=== PATIENT | male | born 1950 | race Caucasian/White ===

== ENCOUNTER 2020-05-18 16:32 | Emergency (ER) | payer MEDICARE, BC ==
[~2020-05-18] VITALS: Ht 193 cm; Wt 102.5 kg
[2020-05-18] MEDS ORDERED: ATORVASTATIN CA20 MG PO (16:43)
[2020-05-18] MEDS ORDERED: METOPROLOL SUCC50 MG PO (16:43)
--- NOTE | 2020-05-18 16:54 | Emergency Department Note ---
History of Present Illnes History of Present Illness Chief Complaint: Laceration History of Present Illness This is a 69 year old male cc laceration left thumb Onset (how long ago): day(s) (1) Location: left thumb Quality: laceration Radiation: Denies non-radiation, Denies back, Denies neck, Denies extremity, Denies abdomen, Denies periumbilical, Denies flank, Denies proximal, Denies distal, Denies other Severity: mild Onset quality: sudden Duration (how long): hour(s) (1) Timing of current episode: constant Progression: unchanged Context: Denies recent illness, Denies recent surgery, Denies recent immobilization, Denies recent travel, Denies trauma/injury, Denies new medications, Denies hx of DVT/PE, Denies non-compliance w/ medications, Denies other Relieving factors: none Associated symptoms: Denies denies other symptoms, Denies confusion, Denies chest pain, Denies cough, Denies diaphoresis, Denies fever/chills, Denies headaches, Denies loss of appetite, Denies malaise, Denies nausea/vomiting, Denies rash, Denies seizure, Denies shortness of breath, Denies syncope, Denies weakness, Denies other Past Medical/Family History Physician Review I have reviewed the patient's past medical and family history. Any updates have been documented here. Past Medical History Past Medical History: Hypertension, Hyperlipedemia Past Surgical History: None Social History Smoking Cessation: Never Smoker Counseling Performed: No Alcohol Use: None Any Illegal Drug Use: No Physically hurt or threatened: No Other Any Pre-Existing Lines (PICC,: No Review of Systems Review of Systems Constitutional: Reports no symptoms EENTM: Reports no symptoms Cardiovascular: Reports no symptoms Respiratory: Reports no symptoms Gastrointestinal: Reports no symptoms Genitourinary: Reports no symptoms Musculoskeletal: Reports as per HPI Integumentary: Reports no symptoms Neurological: Reports no symptoms Psychological: Reports no symptoms Endocrine: Reports no symptoms Hematological/Lymphatic: Reports no symptoms Physical Exam Related Data Allergies: Coded Allergies: No Known Allergies (Unverified , 05/18/20) Vital signs reviewed: Yes Physical Exam CONSTITUTIONAL Constitutional: Present well-developed, Present well-nourished HENT HENT: Present normocephalic, Present atraumatic, Present oropharynx clear/moist, Present nose normal HENT L/R: Present left ext ear normal, Present right ext ear normal EYES Eyes: Reports PERRL, Reports conjunctivae normal NECK Neck: Present ROM normal PULMONARY Pulmonary: Present effort normal, Present breath sounds normal CARDIOVASCULAR Cardiovascular: Present regular rhythm, Present heart sounds normal, Present capillary refill normal, Present normal rate GASTROINTESTINAL Abdominal: Present soft, Present nontender, Present bowel sounds normal GENITOURINARY Genitourinary: Present exam deferred SKIN Skin: Present warm, Present dry MUSCULOSKELETAL Musculoskeletal: Present ROM normal, Present other (laceraton left thumb) NEUROLOGICAL Neurological: Present alert, Present oriented x 3, Present no gross motor or sensory deficits PSYCHOLOGICAL Psychological: Present mood/affect normal, Present judgement normal Assessment & Plan Medical Decision Making MDM LACERATION ABRASION Reassessment Reassessment BETTER Assessment & Plan Final Impression: (1) Laceration of left thumb (2) Acute pain due to trauma Home Meds Reported Medications Atorvastatin Calcium (ATORVASTATIN CALCIUM) 20 Mg Tablet, 40 MG PO HS, #30 TAB 05/18/20 Metoprolol Succinate (METOPROLOL SUCCINATE) 50 Mg Tab.er.24h, 50 MG PO BID, MG 05/18/20 NADINE SARAVIA MD May 18, 2020 16:54
--- OUTSIDE RECORDS SUMMARY | 2020-05-18 17:29 | XMS REPORT | Continuity of Care Document ---
Author Author [facility] t Organization [facility] Address [address] [place] [address] Phone Unavailable Care Team Providers Care Truck Driver Name Role Phone Idalmis Yung Attphys [id number], PROVIDERBAYSHORENORMA Attphys Unavailable RINA CALVO APRN Attphys Unavailable Rhea Zelaya Attphys Megan Vasques Attphys Jossie Diaz Attphys Candace Wilson Attphys Paresh Still Attphys Valdo Pacheco Attphys Rhea Zelaya Admphys Valdo Pacheco Admphys Idalmis Yung Admphys Payers Payer Name Policy Type Policy Number Effective Date Expiration Date S ource Problems Condition Name Condition Details Condition Category Status Onset Date Resolution Date Last Treatment Date Treating Clinician Comments Source N20.0 . N28.89 N20. 0 . N28.89 Active 03/05/2020 [facility] Active 2020-03-05 00:00:00 2020-03-18 13:26:00 [facility] DX: N13.30=UNSPECIFIED HYDRONEPHROSIS, N DX: N13.30=UNSPECIFIED HYDRONEPHROSIS, N Active 02/20/2020 [facility] Active 2020-02-20 00:00:00 2020-02-28 10:55:00 [facility] ACUTE RENAL INSUFFICIENCY ACUT E RENAL INSUFFICIENCY Active 01/23/2020 [facility] Active 2020-01-23 00:00:00 2020-01-24 11:08:00 [facility] CONSTIPATION CONS TIPATION Active 01/23/2020 [facility] Active 2020-01-23 00:00:00 2020-01-23 15:31:00 [facility] DX: M54.16=RADICULOPATHY, LUMBAR REGION, DX: M54.16=RADICULOPATHY, LUMBAR REGION, Active 01/05/2018 [facility] Active 2018-01-05 00:00:00 2018-01-10 19:36:00 [facility] R10.9 CT ABD/PEL WO RENAL STONE PROTOCO R10.9 CT ABD/PEL WO RENAL STONE PROTOCO Active 08/31/2017 [facility] Active 2017-08-31 00:00:00 2017-09-27 08:45:00 M mell Thao FIRST NIGHT 62686 FIRS T NIGHT 42214 Active 09/05/2015 [facility] Active 2015-09-05 00:00:00 2015-09-23 19:55:00 [facility] ACUTE AFIB WITH RVR NEW ONSET ACUTE AFIB WITH RVR NEW ONSET Active 08/15/2015 [facility] Active 2015-08-15 00:00:0 0 2015-08-19 10:26:00 [facility] LIGHT HEADEDNESS LIGH T HEADEDNESS Active 08/15/2015 [facility] Active 2015-08-15 00:00:00 2015-08-15 14:53:00 [facility] PROSTATE CA...PT ALREADY HAS CATH DO NOT PROSTATE CA...PT ALREADY HAS CATH DO NOT Active 07/23/2014 [facility] Active 2014-07-23 00:00:00 2014-07-30 09:58:00 M mell Master UNK UNK Active 05/29/2014 [facility] Active 2014-05-29 00:00:00 2014-07-26 10:08:00 Sharon emodemar Thao History of malignant neoplasm of prostate History of m alignant neoplasm of prostate Problem Resolved [facility] History of backache History of backache Problem Resolved [facility] History of Degenerative disorder History of Degenerative disorde r Problem Resolved [facility] History of high cholesterol History of high cholesterol Problem Resolved [facility] History of hypertension History of hypertension Problem Resolved [facility] Testicular hypofunction Testicular hypofunction Problem Active [facility] Acute bronchitis Acute bronchitis Problem Active [facility] Need for DTP vaccine Need for DTP vaccine Problem Active [facility] URI (upper respiratory infection) URI (upper respiratory infecti on) Problem Active [facility] Benign prostatic hypertrophy Benign prostatic hypertrophy Problem Active [facility] Suspected 2019 novel coronavirus infection Suspected 2 019 novel coronavirus infection Problem Active [facility] Essential (primary) hypertension Essential (primary) hypertensio n Problem Active [facility] Establishing care with new doctor, encounter for Estab lishing care with new doctor, encounter for Problem Active [facility] Hyperlipidemia Hyperlipidemia Problem Active [facility] BMI 28.0-28.9,adult BMI 28.0-28.9,adult Problem Active [facility] Calculus of kidney Calc ulus of kidney 01/03/2018 [facility] 2018-01-03 12:01:45 Me shemar Thao Cyst of kidney, acquired Cyst of kidney, acquired 01/03/2018 [facility] 2018-01-03 12:01:45 Gómez Thao Low back pain Low back pain 07/30/2018 [facility] Problem 2018-07-30 13:58:50 Gómez Thao Spondylosis without myelopathy or radiculopathy, 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, lumbosacral region 07/30/2018 [facility] 2018-07-30 13:58:5 0 Gómez Thao Final: Obstructive sleep apnea (adult) (pediatric) Final: Obstructive sleep apnea (adult) (pediatric) 09/26/2015 [facility] Problem 2015-09-26 00:37:26 Gómez Thao Arthropathy (disorder) Arth ropathy (disorder) Resolved Problem 03/28/2020 [facility] Problem Res olved 2020-03-28 01:11:55 Gómez navas Backache (finding) Back ache (finding) Resolved Problem 03/28/2020 [facility]olved 2020-03-28 01:11:55 Gómez Thao Erectile dysfunction following radical prostatectomy Erectile dysfunction following radical prostatectomy Resolved Problem 03/28/2020 [facility] Heriberto Stephen Problem Resolved 2020-03-28 01:11:55 [facility] External hemorrhoids (disorder) External hemorrhoids (disorder) Resolved Problem 03/28/2020 [facility] 2020-03-28 01:11:55 [facility] andressa Thao Gastroesophageal reflux disease (disorder) Gastroesophageal reflux disease (disorder) Resolved Problem 03/28/2020 [facility] Resolved 2020-03-28 01:11:55 [facility] Atrial fibrillation (disorder) Atrial fibrillation (disorder) Active Problem 03/28/2020 [facility] Active 2020-03-28 01:11:55 [facility] Malignant tumor of prostate (disorder) Malignant tumor of prostate (disorder) Active Problem 01/05/2019 [facility] Active 2019-01-05 01:28:26 Nm shemar Thao Hypertensive disorder, systemic arterial (disorder) Hypertensive disorder, systemic arterial (disorder) Active Problem 03/28/2020 [facility] Active 2020-03-28 01:11:55 [facility] Master Chronic kidney disease stage 2 (disorder) Chronic kidney disease stage 2 (disorder) Active Problem 03/28/2020 Medical [facility] Problem Active 2020-03-28 01:11:55 Kike Thao History of radical prostatectomy (situation) History of radical prostatectomy (situation) Active Problem 03/28/2020 [facility] Problem Active 2020-03-28 01:11:55 Kike Thao Sleep apnea (finding) Slee p apnea (finding) Active Problem 03/28/2020 [facility] Problem Active 2020-03-28 01:11:55 Gómez Thao Hyperlipidemia Hype rlipidemia Active 08/08/2013 [facility] Problem Active 2013-08-08 15:18:47 mell Thao Hypertension Hype rtension Active 08/08/2013 [facility] Problem Active 2013-08-08 15:18:47 Kike demar Master MALIGN NEOPL PROSTATE CASSIDY GN NEOPL PROSTATE Active [facility] Diagnosis Active 2014-07-30 09:58:00 Me shemar Master UNSPECIFIED ATRIAL FIBRILLATION UNSPECIFIED ATRIAL FIBRILLATION Active [facility] Diagnosis Active 2015-08-19 10 :26:00 Gómez Thao OBSTRUCTIVE SLEEP APNEA (ADULT) (PEDIATR OBSTRUCTIVE SLEEP APNEA (ADULT) (PEDIATR Active [facility] Diagnosis Active 2015-09-23 19:55:00 [facility] Master UNSPECIFIED ABDOMINAL PAIN UNS PECIFIED ABDOMINAL PAIN Active [facility] Diagnosis Active 2017-09-27 08:45:00 Gómez Thao RADICULOPATHY, LUMBAR REGION R ADICULOPATHY, LUMBAR REGION Active [facility] Diagnosis Active 2018-01-10 19:36 :00 Góemz Thao DISORDER OF KIDNEY AND URETER, UNSPECIFI DISORDER OF KIDNEY AND URETER, UNSPECIFI Active [facility] Diagnosis Active 2020-01-24 11:08:00 Gómez Thao UNSPECIFIED HYDRONEPHROSIS UNS PECIFIED HYDRONEPHROSIS Active [facility] Diagnosis Active 2020-02-28 10:55:00 [facility] Master CALCULUS OF KIDNEY CALC ULUS OF KIDNEY Active [facility] Diagnosis Active 2020-03-18 13:26:00 Nm shemar Thao OTHER SPECIFIED DISORDERS OF KIDNEY AND OTHER SPECIFIED DISORDERS OF KIDNEY AND Active [facility] Diagnosis Active 2020-03-18 13:26:00 [facility] Master Disorder of kidney and ureter, unspecified Disorder of kidney and ureter, unspecified 01/23/2020 01/26/2020 [facility] 2020-01-23 17:00:00 2020-01-26 22:17:50 2020-01-26 22:17:50 [facility] Master Constipation, unspecified Cons tipation, unspecified 01/23/2020 01/26/2020 [facility] 2020-01-23 17:00:00 2019 22:17:50 2020-01-26 22:17:50 Gómez Thao Other spondylosis with radiculopathy, lumbar region Other spondylosis with radiculopathy, lumbar region 01/14/2018 07/30/2018 [facility] 2018-01-14 03:36:52 2018-07-30 13:58:50 2018-07 13:58:50 [facility] Master Unspecified abdominal pain Uns pecified abdominal pain 10/05/2017 01/03/2018 [facility] Problem 2017-10-05 03:2 1:10 2018-01-03 12:01:45 2018-01-03 12:01:45 Gómez navas Allergies, Adverse Reactions, Alerts Allergy Name Allergy Type Status Severity Reaction(s) Onset Date Inacti ve Date Treating Clinician Comments Source amoxicillin DA Active [place] 2020-05-07 00:00:00 [facility] amoxicillin DA Active [place] 2019-02-10 00:00:00 [facility] amoxicillin DA Active [place] 2019-02-02 00:00:00 [facility] amoxicillin DA Active U 2017-10-05 00:00:00 [facility] amoxicillin DA Active U 2010-12-23 00:00:00 [facility] Amoxicillin TABS Allergy to drug (finding) Active [facility] amoxicillin amoxicillin Active [facility] Master No Known Drug Allergies No Known Drug Allergies Active [facility] Master Family History Family Member Diagnosis Comments Start Date Stop Date Source Mother Family history of Hypertension [facility] Mother Family history of Ovarian Cancer [facility] Mother Family history of Stroke Syndrome [facility] Father Family history of Hypertension [facility] Father Family history of Aortic Aneurysm [facility] Father Family history of Stroke Syndrome [facility] Sister Family history of pancreatic cancer [facility] Unknown Family Member Family History 2013-08-08 15:18:47 2 15:18:47 Gómez Master Social History Social Habit Start Date Stop Date Quantity Comments Source Social History 2013-08-08 15:18:47 2013-08-08 15:18:47 [facility] Smoking Status Start Date Stop Date Source Ex-smoker (finding) [place] [facility] Medications Ordered Medication Name Filled Medication Name Start Date Stop Da te Current Medication? Ordering Clinician Indication Dosage Frequency Signature (SIG) Comments Components Source Azithromycin 250 MG Oral Tablet Azithromycin 250 MG Oral Tab let 2020-02-28 00:00:00 Yes RINA CALVO APRN TAKE 2 TABLETS ON DAY 1 THEN TAKE 1 TABLET A DAY FOR 4 DAYS. [facility] amLODIPine Besylate 5 MG Oral Tablet amLODIPine Besylate 5 M G Oral Tablet 2020-02-27 00:00:00 Yes ALVINO Durán [facility] Atorvastatin Calcium 40 MG Oral Tablet Atorvastatin Calcium 40 MG Oral Tablet 2020-02-27 00:00:00 Yes ALVINO Durán [facility] Metoprolol Tartrate 50 MG Oral Tablet Metoprolol Tartrate 50 MG Oral Tablet 2020-02-27 00:00:00 Yes ALVINO Durán Q0.5D TAKE 1 TABLET TWICE DAILY. [facility] CeleBREX 200 MG Oral Capsule CeleBREX 200 MG Oral Capsule 9 00:00:00 Yes ALVINO Durán [facility] Amitriptyline HCl - 75 MG Oral Tablet Amitriptyline HCl - 75 MG Oral Tablet 2020-02-27 00:00:00 Yes ALVINO Durán [facility] Warfarin Sodium 3 MG Oral Tablet Warfarin Sodium 3 MG Oral T ablet 2020-02-27 00:00:00 Yes ALVINO Durán [facility] Gabapentin 600 MG Oral Tablet Gabapentin 600 MG Oral Tablet 2019 00:00:00 Yes ALVINO Durán [facility] Nitrofurantoin Macrocrystal 100 MG Oral Capsule Nitrof urantoin Macrocrystal 100 MG Oral Capsule 2020-02-27 00:00:00 Yes ALVINO Durán [facility] Flomax 0.4 MG Oral Capsule Flomax 0.4 MG Oral Capsule 2020-02-27 00:0 0:00 Yes ALVINO Durán [facility] Tamsulosin hydrochloride 0.4 MG Oral Capsule [Flomax] 2020-02-20 15:51:00 Yes 0.4 mg = 1 cap, PO, Daily, # 30 cap, 11 Refill(s), Pharmacy: [id number], 190.5, cm, 02/20/20 10:43:00 CDT, Height, 105.909, kg, 02/20/20 10:43:00 CDT, Weight [facility] Oleg woody, RETIREMENT 2020-01-25 02:00:00 No Notes: (Same as: Venturaot) [facility] Master Amitriptyline 2020-01-25 02:00:00 No Notes: (Same as: Elavil) [facility] tamsulosin 0.4 mg oral capsule 2020-01-24 21:26:00 Yes 0.4 mg = 1 cap, PO, After Breakfast, # 30 cap, 0 Refill(s), Pharmacy: [facility] [id number], 190.5, cm, 01/23/20 23:38:00 CDT, Height, 102.727, kg, 01/23/20 23:38:00 CDT, Weight Gómez Crawford Enema 2020-01-24 17:33:00 No 133 mL, Route: VT, Drug Form: ISH, Dosing Weight 102.727, kg, ONCE, Start date: 01/24/20 12:33:00 CDT, Stop date: 01/24/20 12:33:00 CDT, 0 [facility] sennosides, RETIREMENT 8.6 MG Oral Tablet 2020-01-24 17:32:00 No Notes: (Same as: Senokot) Gómez Tripoli Flomax 2020-01-24 15:32:00 No Notes: (Same As: Flomax) "Do Not Crush" [facility] Docusate 2020-01-24 14:00:00 No Notes: (Same as: Colace) (Do Not Crush) [facility] POLYETHYLENE GLYCOL 3350 2020-01-24 14:00:00 No Notes: Dissolve in 8 oz of water or juice. (Same as: Miralax) [facility] atorvastatin 2020-01-24 14:00:00 No Notes: (Same as: Lipitor) [facility] gabapentin 300 MG Oral Capsule 2020-01-24 14:00:00 No Notes: (Same as: Neurontin) [facility] 24 HR Metoprolol Tartrate 50 MG Extended Release Tablet [Top rol] 2020-01-24 14:00:00 No Notes: (Sa me as: Toprol XL) May split tab, but do not crush. [facility] Ceftriaxone 2020-01-24 06:00:00 No Notes: (Same As: Rocephin). Use with 100 mL NS and infuse over 30 min MEDICATION WASTE Product Size: 1000 mg Product Wasted: ___ mg Gómez Thao Ondansetron 2020-01-24 05:31:00 No Notes: (Same as: Zofran) MEDICATION WASTE Product Size: 4 mg Product Wasted: ___ mg [facility] Dextrose 50% Syringe (D50W) 2020-01-24 05:31:00 No 12.5 gm, 25 mL, Route: IVP, Drug Form: INJ, Dosing Weight 102.727, kg, PRN, PRN Blood Glucose Results, Start date: 01/24/20 0:31:00 CDT, Duration: 30 day, Stop date: 02/23/20 0:30:00 CDT, 0 [facility] [place] Glucagon 2020-01-24 05:31:00 No 1 mg, Route: IM, Drug form: PDR/INJ, PRN, Dosing Weight 102.727, kg, PRN Blood Glucose Results, Start date: 01/24/20 0:31:00 CDT, Duration: 30 day, Stop date: 02/23/20 0:30:00 CDT, 0 [facility] Master Melatonin 2020-01-24 05:31:00 No Notes: (Sa me as: Melatonin) [facility] Acetaminophen 2020-01-24 05:31:00 No Notes: Do not exceed 4 gm/day. (Same as: Tylenol) [facility] Lactated Ringers IV 1,000 mL 2020-01-24 05:31:00 No 1,000 mL, Rate: 125 ml/hr, Infuse over: 8 hr, Route: IV, Dosing Weight 102.727 kg, Total Volume: 1,000, Start date: 01/24/20 0:31:00 CDT, Duration: 30 day, Stop date: 02/23/20 0:30:00 CDT, 2.34, m2, 0 [facility] n Saline Flush 0.9% 2020-01-24 05:31:00 No Notes: (Same as: BD Posiflush) [facility] Hydromorphone 2020-01-24 05:31:00 No Notes: Same as: Dilaudid [facility] amitriptyline 75 mg oral tablet 2020-01-24 04:32:00 Yes 75 mg = 1 tab, PO, Bedtime, # 30 tab, 0 Refill(s) [facility] Centrum Silver Men's 2020-01-24 04:32:00 Yes PO, Daily, 0 Refill(s) [facility] GoLYTELY oral powder for reconstitution 2020-01-24 02:05:00 No 240 mL, PO, Q10Min, X 1 day, # 1 ea, 0 Refill(s), Pharmacy: [facility] 82, 190.5, cm, 01/23/20 14:14:00 CDT, Height, 102.727, kg, 01/23/20 14:14:00 CDT, Weight Gómez Thao NS (Bolus) IV 2020-01-23 23:26:00 No 1,000 mL, 1,000 ml/hr, Infuse Over: 1 hr, Route: IV, 1,000, Drug form: INJ, ONCE, Priority: STAT, Dosing Weight 102.727 kg, Start date: 01/23/20 18:26:00 CDT, Stop date: 01/23/20 18:26:00 CDT, 0 [facility] atorvastatin 40 mg oral tablet 2019-01-02 20:18:00 Yes 0 Refill(s) [facility] gabapentin 600 MG Oral Tablet 2018-05-15 18:36:00 Yes See Instructions, 600mg in the morning, 600mg in the afternoon and 1200 at night., # 240 tab, 2 Refill(s), Pharmacy: [facility] [address] [place] [address] gabapentin 600 MG Oral Tablet 2018-04-13 19:28:00 Yes 600 mg = 1 tab, PO, Daily, 2 Caps PO qhs, # 60 tab, 0 Refill(s), Pharmacy: [facility] [address] [place] [address] celecoxib 200 MG Oral Capsule [Celebrex] 2018-03-23 21:36:55 Yes 200 mg = 1 cap, PO, BID, # 60 cap, 0 Refill(s), Pharmacy: [facility] [address] [place] [address] Sodium Chloride 2018-03-22 17:32:00 No 2 mL, Route: MISC, Dosing Weight 113.636, kg, ONCE, (Preservative Free), Use to Dilute Medication, Start date: 03/22/18 12:32:00 CDT, Stop date: 03/22/18 12:32:00 CDT [facility] Omnipaque 300 2018-03-22 17:32:00 No 2 mL, Route: EPIDURAL, Dosing Weight 113.636, kg, ONCE, Start date: 03/22/18 12:32:00 CDT, Stop date: 03/22/18 12:32:00 CDT [facility] Lidocaine Hydrochloride 10 MG/ML Injectable Solution 03-22 17:32:00 No 10 mL, Route: STEVEN B-Q, Dosing Weight 113.636, kg, ONCE, Start date: 03/22/18 12:32:00 CDT, Stop date: 03/22/18 12:32:00 CDT [facility] Dexamethasone 2018-03-22 17:32:00 No 10 mg, Route: EPIDURAL, ONCE, Dosing Weight 113.636, kg, (Preservative Free), Start date: 03/22/18 12:32:00 CDT, Stop date: 03/22/18 12:32:00 CDT [facility] Bupivacaine Hydrochloride 5 MG/ML Injectable Solution 2018-03-22 17:32:00 No 4 mL, Route: in tra-ARTICULAR, Dosing Weight 113.636, kg, ONCE, (Preservative Free), Start date: 03/22/18 12:32:00 CDT, Stop date: 03/22/18 12:32:00 CDT [facility] celecoxib 200 MG Oral Capsule [Celebrex] 2018-02-22 19:51:00 No 200 mg = 1 cap, PO, BID, # 60 cap, 0 Refill(s), Pharmacy: [facility] [address] [place] [address] gabapentin 300 MG Oral Capsule 2018-02-22 19:50:00 Yes 300 mg = 1 cap, PO, TID, # 90 cap, 0 Refill(s), Pharmacy: [facility] [address] [place] [address] Omnipaque 300 2018-02-22 18:20:00 No 2 mL, Route: EPIDURAL, Dosing Weight 102.045, kg, ONCE, Start date: 02/22/18 13:20:00 CDT, Stop date: 02/22/18 13:20:00 CDT [facility] Depo-Medrol 2018-02-22 18:20:00 No 40 mg, Route: intra-ARTICULAR, Drug form: SUSP, ONCE, Dosing Weight 102.045, kg, Start date: 02/22/18 13:20:00 CDT, Stop date: 02/22/18 13:20:00 CDT [facility] Lidocaine Hydrochloride 10 MG/ML Injectable Solution 02-22 18:20:00 No 10 mL, Route: STEVEN B-Q, Dosing Weight 102.045, kg, ONCE, Start date: 02/22/18 13:20:00 CDT, Stop date: 02/22/18 13:20:00 CDT [facility] Dexamethasone 2018-02-22 18:20:00 No 10 mg, Route: EPIDURAL, ONCE, Dosing Weight 102.045, kg, (Preservative Free), Start date: 02/22/18 13:20:00 CDT, Stop date: 02/22/18 13:20:00 CDT [facility] Bupivacaine Hydrochloride 2.5 MG/ML Injectable Solution 2018-02-22 18:20:00 No 4 mL, Route: in tra-ARTICULAR, Dosing Weight 102.045, kg, ONCE, (Preservative Free), Start date: 02/22/18 13:20:00 CDT, Stop date: 02/22/18 13:20:00 CDT [facility] gabapentin 300 MG Oral Capsule 2018-02-02 17:08:00 Yes 300 mg = 1 cap, PO, Daily, 1 cap PO at night, # 30 cap, 1 Refill(s), Pharmacy: [facility] [id number] [place] [address] celecoxib 100 MG Oral Capsule [Celebrex] 2018-02-02 17:06:00 Yes 100 mg = 1 cap, PO, BID, 1 cap PO BID, # 60 cap, 1 Refill(s), Pharmacy: [facility] [id number] [place] [address] amitriptyline 75 mg oral tablet 2018-02-02 16:31:00 Yes 75 mg = 1 tab, PO, Bedtime, 0 Refill(s) Gómez ashraf amLODIPine 5 mg oral tablet 2018-01-04 17:11:00 Yes 5 mg = 1 tab, PO, Daily, # 30 tab, 0 Refill(s) Ragini Thao warfarin 3 mg oral tablet 2018-01-04 17:11:00 Yes 3 mg = 1 tab, PO, Daily, # 30 tab, 0 Refill(s) Gómez hu apixaban 5 MG Oral Tablet [Eliquis] 2015-08-19 15:18:00 Yes 5 mg = 1 tab, PO, BID, post-knee replacement surgery, # 60 tab, 3 Refill(s) Gómez Thao metoprolol tartrate 50 mg oral tablet 2015-08-19 15:18:00 Y es 50 mg = 1 tab, PO, Q12H, # 60 tab, 6 Refill(s) Gómez Thao remove patch 2015-08-19 04:00:00 No Notes: Remove patch 12 hours after application each day. Gómez navas Lovenox 2015-08-19 00:00:00 No Notes: Nurse to ensure documentation of patient education per anticoagulation policy. (Same as: Lovenox) Gómez Thao Lidocaine Hydrochloride 0.05 MG/MG Transdermal Patch [Lidode rm] 2015-08-18 16:00:00 No Notes: Radha ly only once for up to 12 hours in a 24-hour period (12 hours on and 12 hours off). (Same as: Lidoderm) "Remove old patch before application of new patch" Ragini Thao metoprolol tartrate 2015-08-18 03:00:00 No Notes: (Same as: Lopressor) Gómez Thao NS 250 mL 2015-08-17 20:56:00 No 250 mL, Rate: 25 ml/hr, Infuse over: 10 hr, Route: IV, Dosing Weight 99 kg, Total Volume: 250, Start date: 08/17/15 14:56:00, Duration: 1 day, Stop date: 08/18/15 14:55:00 Gómez Thao Fentanyl 2015-08-17 18:00:00 No Notes: (Same as: Sublimaze) Preservative free. Gómez Thao Versed 2015-08-17 18:00:00 No Notes: (Same as: Versed) MEDICATION WASTE Product Size: 5 mg Product Wasted: ___ mg Gómez Thao Hurricaine 2015-08-17 17:15:00 No Notes: (Same As: Dermoplast) WASTE: Aerosol - Return to Pharmacy FOR EXTERNAL USE ONLY Gómez Leyvaann Simvastatin 2015-08-17 03:00:00 No Notes: ( Same as: Zocor) Gómez Leyvaann Amitriptyline 2015-08-17 03:00:00 No Notes: (Same as: Elavil) Gómez Leyvaann Eliquis 2015-08-17 00:00:00 No Notes: Same as: Eliquis Gómez Leyvaann Mobic 2015-08-16 18:00:00 No Notes: (Same a s: Mobic) Gómez Thao meloxicam 2015-08-16 15:00:00 No Notes: ([facility] as: Mobic) Gómez Thao Digoxin 2015-08-16 13:48:00 No Notes: (Same as: Lanoxin) Gómez Thao metoprolol tartrate 2015-08-16 13:45:00 No Notes: (Same as: Lopressor) Gómez Thao Lovenox 2015-08-16 13:00:00 No Notes: Nurse to ensure documentation of patient education per anticoagulation policy. (Same as: Lovenox) Gómez Thao metoprolol 50 mg oral tablet, extended release 2015-08-16 06:35: 00 No 50 mg = 1 tab, PO, Daily, # 90 tab, 0 Refill(s) Gómez Thao Diltiazem 2015-08-16 03:26:00 No Notes: ([facility] as: Cardizem) Gómez Thao Morphine 2015-08-16 01:32:00 No Not es: (Same as:MORPhine Sulfate) Gómez Thao Docusate 2015-08-16 01:32:00 No Notes: (Same as: Colace) (Do Not Crush) Gómez Thao Ondansetron 2015-08-16 01:32:00 No Notes: (Same as: Zofran) MEDICATION WASTE Product Size: 4 mg Product Wasted: ___ mg Gómez Thao Acetaminophen 2015-08-16 01:32:00 No Notes: Do not exceed 4 gm/day. (Same as: Tylenol) Gómez Thao Lovenox 2015-08-15 23:46:00 No Notes: Nurse to ensure documentation of patient education per anticoagulation policy. (Same as: Lovenox) Gómez Thao Digoxin 2015-08-15 23:45:00 No Notes: (Same as: Lanoxin) Gómez Thao Cardizem 2015-08-15 21:46:00 No Notes: ([facility] e as: Cardizem) Gómez Thao Sodium Chloride 0.154 MEQ/ML Injectable Solution 2015-08-15 20:4 2:00 No 500 mL, 500 ml/hr, Infuse Ov er: 1 hr, Route: IV, 500, Drug form: INJ, ONCE, Priority: STAT, Dosing Weight 100 kg, Start date: 08/15/15 14:42:00, Duration: 1 doses or times, Stop date: 08/15/15 14:42:00 [facility] Docusate Sodium 100 MG Oral Capsule [Colace] 2014-07-18 15:00:00 No 100 mg, 1 cap, Route: PO, BID, Dosing Weight 104.545, kg, Start date: 07/18/14 9:00:00, Duration: 30 day, Stop date: 08/16/14 17:00:00 [facility] Levaquin 2014-07-17 16:00:00 No Notes: Do not give w/antacids, dairy pdt & minerals Take 1 hr before or 2 hr after dairy pdt (Same as:Levaquin) [facility] Ketorolac Tromethamine 30 MG/ML Injectable Solution 07-17 15:08:00 No 4 days [facility] pneumococcal capsular polysaccharide typ e 1 vaccine / pneumococcal capsular polysaccharide type 10A vaccine / pneumococcal capsular polysaccharide type 11A vaccine / pneumococcal capsular polysaccharide type 12F vaccine / pneumococcal capsular polysacchar 2014-07-17 15:00:00 No Notes: (Same as: Pneumovax 23) Refrigerate [facility] Influenza Virus Vaccine, Inactivated A-B [id number] (H3N2)-like virus ([id number] [facility] X-175C) strain / Influenza Virus Vaccine, Inactivated R-[id number]-58-2007, IVR-148 (H1N1) strain / Influenza Virus Vaccine, Inactivated, L-Fkygbie-2-2006-lik 2014-07-17 15:00:00 No Notes: (Same as: Fluzone Quadrivalent) [facility] 24 HR Metoprolol Tartrate 25 MG Extended Release Tablet [Top rol] 2014-07-17 15:00:00 No Notes: (Same as: Toprol XL) D o Not Crush [facility] Lovenox 2014-07-17 12:00:00 No Notes: (Same as: Lovenox) [facility] Amlodipine 2014-07-17 03:30:00 No Notes: (S d[facility] as: Norvasc) [facility] Cipro 2014-07-17 03:00:00 No Notes: Do not refrigerate [facility] Famotidine 2014-07-17 03:00:00 No Notes: (S daxa as: Pepcid) [facility] tadalafil 5 MG Oral Tablet [Cialis] 2014-07-17 02:08:00 Yes 5 mg = 1 tab, PO, Daily, for erectile dysfunction, 0 Refill(s) [facility] metoprolol 25 mg oral tablet, extended release 2014-07-17 02:03: 00 Yes 0 Refill(s) Gómez Yasmany n Calcium Gluconate 2014-07-16 23:41:00 No 1,000 mg, 10 mL, Route: IVPB, ONCE, Dosing Weight 104.545, kg, Start date: 07/16/14 17:41:00, Stop date: 07/16/14 17:41:00 [facility] Docusate Sodium 100 MG Oral Capsule 2014-07-16 23:00:00 No Notes: (Same as: Colace) (Do Not Crush) Delfinabambi harvey Thao 10 ML Cefazolin 100 MG/ML Prefilled Syringe 2014-07-16 22:00:00 No 1 gm, 100 mL, Route: IVPB, Drug form: INJ, Q8H, Dosing Weight 104.545, kg, Start date: 07/16/14 16:00:00, Duration: 3 doses or times, Stop date: 07/17/14 8:00:00 [facility] Promethazine 2014-07-16 19:43:00 No 6.25 mg, Route: IVPB, ONCE, Dosing Weight 104.545, kg, PRN Nausea & Vomiting, Start date: 07/16/14 13:43:00 [facility] Diphenhydramine 2014-07-16 19:43:00 No 12.5 mg, Route: IVP, Drug form: INJ, Q6H, Dosing Weight 104.545, kg, PRN Itching, Start date: 07/16/14 13:43:00, Duration: 30 day, Stop date: 08/15/14 13:42:00 [facility] Morphine 2014-07-16 19:43:00 No 4 mg, Route: IVP, Q5Min, Dosing Weight 104.545, kg, PRN Pain Score 7-10, Start date: 07/16/14 13:43:00, Duration: 3 doses or times, Stop date: Limited # of times [facility] Meperidine 2014-07-16 19:43:00 No 12.5 mg, Route: IVP, Q30Min, Dosing Weight 104.545, kg, PRN Other -See Comment, For shivering, Start date: 07/16/14 13:43:00, Duration: 2 doses or times, Stop date: Limited # of times [facility] Hydromorphone 2014-07-16 19:43:00 No 0.5 mg, Route: IVP, Q5Min, Dosing Weight 104.545, kg, PRN Pain Score 7-10, Start date: 07/16/14 13:43:00, Duration: 4 doses or times, Stop date: Limited # of times [facility] Flumazenil 2014-07-16 19:43:00 No 0.2 mg, Route: IVP, PRN, Dosing Weight 104.545, kg, PRN Benzodiazepine Reversal, Initial dose, Start date: 07/16/14 13:43:00, Duration: 30 day, Stop date: 08/15/14 13:42:00 [facility] Ondansetron 2014-07-16 19:43:00 No 4 mg, Route: IVP, ONCE, Dosing Weight 104.545, kg, PRN Nausea & Vomiting, Start date: 07/16/14 13:43:00 [facility] Oxycodone 2014-07-16 19:43:00 No 10 mg, Route: PO, Drug form: TAB, Q4H, Dosing Weight 104.545, kg, PRN Pain Score 7-10, Start date: 07/16/14 13:43:00, Duration: 30 day, Stop date: 08/15/14 13:42:00 [facility] Oxycodone Hydrochloride 1 MG/ML Oral Solution 2014-07-16 19:43:0 0 No 5 mg, Route: NG, Drug form: LIQ, Q4H, Do sing Weight 104.545, kg, PRN Pain Score 4-6, Start date: 07/16/14 13:43:00, Duration: 30 day, Stop date: 08/15/14 13:42:00 [facility] Acetaminophen 2014-07-16 19:43:00 No 1,000 mg, Route: IVPB, Drug form: INJ, ONCE, Dosing Weight 104.545, kg, PRN Pain Score 1-3, Start date: 07/16/14 13:43:00, Duration: 1 doses or times, Stop date: Limited # of times [facility] [place] Naloxone 2014-07-16 19:43:00 No 0.04 mg, Route: IVP, Q2MIN, Dosing Weight 104.545, kg, PRN Narcotic Reversal, Start date: 07/16/14 13:43:00, Duration: 8 doses or times, Stop date: Limited # of times [facility] Ketorolac 2014-07-16 19:43:00 No 30 mg, Route: IVP, ONCE, Dosing Weight 104.545, kg, Start date: 07/16/14 13:43:00, Duration: 1 doses or times, Stop date: 07/16/14 13:43:00 [facility] mayte Fentanyl 2014-07-16 19:43:00 No 50 microgram, Route: IVP, Q5Min, Dosing Weight 104.545, kg, PRN Pain Score 7-10, Start date: 07/16/14 13:43:00, Duration: 2 doses or times, Stop date: Limited # of times [facility] Calcium Chloride 0.0014 MEQ/ML / Potassi um Chloride 0.004 MEQ/ML / Sodium Chloride 0.103 MEQ/ML / Sodium Lactate 0.028 MEQ/ML Injectable Solution 2014-07-16 19:43:00 No 1,000 mL, Rate: 125 ml/hr, Infuse over: 8 hr, Route: IV, Dosing Weight 104.545 kg, Total Volume: 1,000, Start date: 07/16/14 13:43:00, Duration: 30 day, Stop date: 08/15/14 13:42:00 [facility] D5W 1/2NS + KCL 20mEq/L 1000ml (Premix) 1,000 mL 2014-07-16 19:2 8:00 No Notes: PREMIX IV - Do Not Alter [facility] Saline Flush 0.9% 2014-07-16 19:28:00 No Notes: (Same as: BD Posiflush) [facility] Ondansetron 2014-07-16 19:28:00 No Notes: ( Same as: Zofran) [facility] acetaminophen-codeine #3 2014-07-16 19:28:00 No Notes: Do not exceed 4gm/day of acetaminophen. (Same as: Tylenol with Codeine # 3) [facility] Acetaminophen 325 MG / Hydrocodone Bitartrate 10 MG Oral Tab let 2014-07-16 19:28:00 No Notes: Do not exceed 4gm/day of acetaminophen. (Same as: [place] 325/10) [facility] Hydromorphone 2014-07-16 19:28:00 No 0.3 mg, 0.3 mL, Route: IVP, Drug form: INJ, Q3H, Dosing Weight 104.545, kg, PRN Pain Score 6-10, Start date: 07/16/14 13:28:00, Duration: 30 day, Stop date: 08/15/14 13:27:00 [facility] Acetaminophen 325 MG / Hydrocodone Bitartrate 5 MG Oral Tabl et 2014-07-16 19:28:00 No Notes: (Sa me as: [place] 325/5) Do not exceed 4gm/day of acetaminophen. [facility] Acetaminophen 2014-07-16 19:28:00 No Notes: Max acetaminophen = 4000 mg/day (4 gm/day). (Same as: Tylenol) [facility] Aluminum Hydroxide 40 MG/ML / Magnesium Hydroxide 40 MG/ML / Simethicone 4 MG/ML Oral Suspension 2014-07-16 19:28:00 No Notes: (aluminum hydroxide- magnesium hyd-simethicone 197-615-13vw/5ml 30 ml ud ALLEN) [facility] Morphine 2014-07-16 19:28:00 No Not es: (Same as:MORPhine Sulfate) [facility] Diphenhydramine 2014-07-16 19:28:00 No 25 mg, 1 tab, Route: PO, Drug form: TAB, Bedtime, Dosing Weight 104.545, kg, PRN Insomnia, Start date: 07/16/14 13:28:00, Duration: 30 day, Stop date: 08/15/14 13:27:00 [facility] Ciprofloxacin 2 MG/ML Injectable Solution 2014-07-16 15:22:00 No 400 mg, Route: IVPB, ONCE, Dosing Weight 104.545, kg, Start date: 07/16/14 9:22:00, Stop date: 07/16/14 9:22:00 [facility] 2014-07-16 15:19:00 No 1 gm, Route: IVPB, Drug form: PDR/INJ, ONCE, Dosing Weight 104.545, kg, Start date: 07/16/14 9:19:00, Stop date: 07/16/14 9:19:00 [facility] Master Calcium Chloride 0.0014 MEQ/ML / Potassi um Chloride 0.004 MEQ/ML / Sodium Chloride 0.103 MEQ/ML / Sodium Lactate 0.028 MEQ/ML Injectable Solution 2014-07-16 14:14:00 No 1,000 mL, Rate: 25 ml/hr, Infuse over: 40 hr, Route: IV, Dosing Weight 104.545 kg, Total Volume: 1,000, Start date: 07/16/14 8:14:00, Duration: 30 day, Stop date: 08/15/14 8:13:00 Gómez Thao Enoxaparin 2014-07-16 14:00:00 No 40 mg, Route: SUB-Q, Drug form: INJ, [id number], Dosing Weight 104.545, kg, Start date: 07/16/14 8:00:00, Duration: 30 day, Stop date: 08/14/14 8:00:00 [facility] Docusate Sodium 100 MG Oral Capsule [Colace] 2014-07-16 13:52:00 Yes 100 mg = 1 cap, PO, BID, Constipation, # 20 cap, 0 Refill(s) [facility] Levofloxacin 250 MG Oral Tablet [Levaquin] 2014-07-16 13:51:00 Yes 250 mg = 1 tab, PO, Q24H, # 14 tab, 0 Refill(s) [facility] tramadol hydrochloride 50 MG Oral Tablet [Ultram] 2014-07-16 13:51:00 No 50 mg = 1 tab, PO, Q4H, pain, # 20 tab, 0 Refil l(s) [facility] tramadol hydrochloride 50 MG Oral Tablet [Ultram] 2014-07-16 13:50:00 Yes 50 mg = 1 tab, PO, Q4H, pain, # 20 tab, 0 Refil l(s) [facility] Tamsulosin hydrochloride 0.4 MG Oral Capsule [Flomax] 2014-07-09 17:06:00 Yes 0.4 mg = 1 cap, PO, Daily, # 30 cap, 0 R efill(s) Gómez Thao simvastatin 40 mg oral tablet 2014-07-09 17:06:00 Yes 40 mg = 1 tab, PO, Bedtime, # 30 tab, 0 Refill(s) Kike Thao amLODIPine 10 mg oral tablet 2014-07-09 17:06:00 Yes 10 mg = 1 tab, PO, Daily, # 30 tab, 0 Refill(s) Ragini Thao Amitriptyline 2014-07-09 17:05:00 Yes 37 mg po nightly (Elavil), 0 Refill(s) Gómez Thao meloxicam 15 mg oral tablet 2014-07-09 17:03:00 Yes 15 mg = 1 tab, PO, Daily, # 30 tab, 0 Refill(s) Ragini Thao Elavil 75 MG TABS 2013-08-08 15:18:47 Yes ( Active) Gómez Thao Simvastatin TABS 2013-08-08 15:18:47 Yes (A ctive) Gómez Thao Flomax 0.4 MG Oral Capsule 2013-08-08 15:18:47 Yes (Active) Gómez Thao Mobic TABS 2013-08-08 15:18:47 Yes (Active) [facility] Master Immunizations Ordered Immunization Name Filled Immunization Name Date Status Comments Source Tdap (Boostrix) 2013-10-08 12:17:00 Completed [facility] Zoster (Zostavax) 2012-05-30 00:00:00 Completed [facility] Vital Signs Vital Name Observation Time Observation Value Comments Source Height 2020-03-25 20:20:00 193.04 cm Gómez Thao Weight 2020-03-25 20:20:00 [facility] Master BMI Calculated 2020-03-25 20:20:00 Estrada Davila Height 2020-03-04 21:30:00 193.04 cm [facility] Weight 2020-03-04 21:30:00 [facility] Master BMI Calculated 2020-03-04 21:30:00 Estrada Davila Systolic blood pressure 2020-02-27 10:23:00 110 mm[Hg] Loca tion: RUE; Position: Sitting [facility] Diastolic blood pressure 2020-02-27 10:23:00 60 mm[Hg] Loc ation: RUE; Position: Sitting [facility] Body height 2020-02-27 10:23:00 76 [in_us] [facility] Weight 2020-02-27 10:23:00 230 [lb_av] [facility] Body mass index (BMI) [Ratio] 2020-02-27 10:23:00 28 kg/m2 [facility] Height 2020-02-20 15:43:00 190.5 cm [facility] Weight 2020-02-20 15:43:00 [facility] BMI Calculated 2020-02-20 15:43:00 [facility] [place] Temperature Oral (F) 2020-01-24 20:32:00 98.3 F [facility] [place] Heart Rate 2020-01-24 20:32:00 [facility] [place] Systolic (mm Hg) 2020-01-24 20:32:00 Kike rial [place] Diastolic (mm Hg) 2020-01-24 20:32:00 [facility] Temperature Oral (F) 2020-01-24 17:28:00 98.0 F [facility] [place] Heart Rate 2020-01-24 17:28:00 [facility] Respitory Rate 2020-01-24 17:28:00 [facility] Systolic (mm Hg) 2020-01-24 17:28:00 Kike rial [place] Diastolic (mm Hg) 2020-01-24 17:28:00 [facility] Temperature Oral (F) 2020-01-24 13:23:00 98.2 F [facility] [place] Respitory Rate 2020-01-24 13:23:00 [facility] [place] Heart Rate 2020-01-24 13:23:00 [facility] Systolic (mm Hg) 2020-01-24 13:23:00 Kike rial [place] Diastolic (mm Hg) 2020-01-24 13:23:00 [facility] Respitory Rate 2020-01-24 12:27:00 [facility] [place] Height 2020-01-24 04:38:00 190.5 cm [facility] Weight 2020-01-24 04:38:00 [facility] BMI Calculated 2020-01-24 04:38:00 [facility] [place] Height 2020-01-23 19:14:00 190.5 cm [facility] BMI Calculated 2020-01-23 19:14:00 [facility] [place] Weight 2020-01-23 19:14:00 [facility] Weight 2019-01-02 20:13:00 [facility] Height 2018-06-06 20:50:00 193.04 cm [facility] BMI Calculated 2018-06-06 20:50:00 [facility] [place] Weight 2018-06-06 20:50:00 [facility] [place] Heart Rate 2018-06-06 20:50:00 [facility] [place] Systolic (mm Hg) 2018-06-06 20:50:00 Kike rial Master Diastolic (mm Hg) 2018-06-06 20:50:00 [facility] Weight 2018-04-13 19:25:00 [facility] BMI Calculated 2018-04-13 19:25:00 [facility] Height 2018-04-13 19:25:00 193.04 cm [facility] Temperature Oral (F) 2018-04-13 19:25:00 98.2 F [facility] Heart Rate 2018-04-13 19:25:00 [facility] Systolic (mm Hg) 2018-04-13 19:25:00 Kike rial [place] Diastolic (mm Hg) 2018-04-13 19:25:00 [facility] Weight 2018-03-08 16:53:00 [facility] Systolic (mm Hg) 2018-03-08 16:53:00 Kike rial [place] Diastolic (mm Hg) 2018-03-08 16:53:00 [facility] Heart Rate 2018-03-08 16:53:00 [facility] Weight 2018-02-02 17:02:00 [facility] BMI Calculated 2018-02-02 17:02:00 [facility] Height 2018-02-02 17:02:00 193.04 cm [facility] [place] Temperature Oral (F) 2018-02-02 17:02:00 98.1 F [facility] [place] Heart Rate 2018-02-02 17:02:00 [facility] Systolic (mm Hg) 2018-02-02 17:02:00 Kike rial [place] Diastolic (mm Hg) 2018-02-02 17:02:00 [facility] BMI Calculated 2018-01-04 16:57:00 [facility] Weight 2018-01-04 16:57:00 [facility] Height 2018-01-04 16:57:00 193.04 cm [facility] [place] Temperature Oral (F) 2018-01-04 16:57:00 98.0 F [facility] [place] Systolic (mm Hg) 2018-01-04 16:57:00 Kike rial Master Diastolic (mm Hg) 2018-01-04 16:57:00 [facility] [place] Systolic (mm Hg) 2015-08-19 14:00:00 Kike rial [place] Diastolic (mm Hg) 2015-08-19 14:00:00 [facility] [place] Respitory Rate 2015-08-19 14:00:00 [facility] [place] Heart Rate 2015-08-19 14:00:00 [facility] [place] Temperature Oral (F) 2015-08-19 14:00:00 97.6 F [facility] Systolic (mm Hg) 2015-08-19 10:00:00 Kike rial [place] Diastolic (mm Hg) 2015-08-19 10:00:00 [facility] [place] Respitory Rate 2015-08-19 10:00:00 [facility] Temperature Oral (F) 2015-08-19 10:00:00 97.8 F [facility] Heart Rate 2015-08-19 10:00:00 [facility] Systolic (mm Hg) 2015-08-19 06:00:00 Kike rial Master Diastolic (mm Hg) 2015-08-19 06:00:00 [facility] Temperature Oral (F) 2015-08-19 06:00:00 98.3 F [facility] [place] Heart Rate 2015-08-19 06:00:00 [facility] [place] Respitory Rate 2015-08-19 06:00:00 [facility] Weight 2015-08-17 14:48:00 [facility] BMI Calculated 2015-08-16 01:34:00 [facility] [place] Weight 2015-08-16 01:34:00 [facility] [place] Height 2015-08-16 01:34:00 200.66 cm [facility] [place] Weight 2015-08-15 19:33:00 [facility] Temperature Oral (F) 2014-07-18 18:00:00 98.0 F [facility] Systolic (mm Hg) 2014-07-18 18:00:00 Kike rial [facility] Heart Rate 2014-07-18 18:00:00 [facility] Diastolic (mm Hg) 2014-07-18 18:00:00 [facility] Systolic (mm Hg) 2014-07-18 14:18:00 Kike rial [place] Temperature Oral (F) 2014-07-18 14:18:00 98.3 F [facility] [place] Diastolic (mm Hg) 2014-07-18 14:18:00 [facility] Respitory Rate 2014-07-18 13:56:00 [facility] [place] Respitory Rate 2014-07-18 10:22:00 [facility] Systolic (mm Hg) 2014-07-18 10:22:00 Kike rial Master Heart Rate 2014-07-18 10:22:00 [facility] [place] Diastolic (mm Hg) 2014-07-18 10:22:00 [facility] [place] Temperature Oral (F) 2014-07-18 10:22:00 98.3 F [facility] Heart Rate 2014-07-18 06:28:00 [facility] Respitory Rate 2014-07-18 06:28:00 [facility] Height 2014-07-09 16:20:00 193.04 cm [facility] [place] Weight 2014-07-09 16:20:00 [facility] BMI Calculated 2014-07-09 16:20:00 [facility] [place] Procedures Procedure Date / Time Performed Performing Clinician [facility] everardo Grant [facility] - COVID-19/SARS-Cov-2 2020-02-27 00:00:00 [facility] Injection(s), of diagnostic or therapeut ic substance(s) (eg, anesthetic, antispasmodic, opioid, steroid, other solution), not including neurolytic substances, including needle or catheter placement, interlaminar epidural or subarachnoid, lumbar or sacral 2018-03-22 17:32:00 [facility] Injection(s), anesthetic agent and/or st eroid, transforaminal epidural, with imaging guidance (fluoroscopy or CT); lumbar or sacral, each additional level (List separately in addition to code for primary procedure) 2018-02-22 18:20:00 [facility] Master Injection(s), anesthetic agent and/or st eroid, transforaminal epidural, with imaging guidance (fluoroscopy or CT); lumbar or sacral, single level 2018-02-22 18:20:00 [facility] Cystoscopy 2014-06-26 06:00:00 [facility] Needle biopsy of prostate 2014-02-13 05:00:00 Me shemar Thao Prostatectomy 2013-06-20 00:00:00 [facility] Her navas Complex uroflowmetry 2010-12-28 05:00:00 Ragini Thao History of Back Surgery [facility] History of Rotator Cuff Repair [facility] History of Prostate Surgery [facility] Procedure on back [facility] Anali nn Repair of multiple tears of rotator cuff of shoulder [facility] Master Shoulder joint operations Estrada al Master Encounters Start Date/Time End Date/Time En[facility] Ad[facility] ID Source 2020-03-14 08:53:49 Outpatient MHSE URO [id number] 2020-03-25 14:50:00 2020-03-25 23:59:59 Outpatient Froilan YungMG [facility]MG [id number] 2020-03-18 13:26:00 2020-03-18 23:59:00 Outpatient Froilan YungSE MHSE [id number] 2020-03-04 16:30:00 2020-03-04 23:59:59 Outpatient Froilan YungMG MG [id number] 2020-02-28 10:55:00 2020-02-28 23:59:00 Outpatient Froilan YungSE MHSE [id number] 2020-02-28 10:55:00 2020-02-28 10:55:00 Outpatient MHSE URO [id number] [facility] 2020-02-27 12:45:00 2020-02-27 12:45:00 Appointment; CO19, PROVI BENBAYSHOREAN CO19[facility] [id number] 2020-02-27 10:00:00 2020-02-27 10:00:00 Appointment; RINA CALVO A PRN SAXE, KAILA, APRN [facility] [id number] [facility] 2020-02-20 10:15:00 2020-02-20 23:59:59 Outpatient Froilan YungMG [facility]MG [id number] 2020-02-12 15:00:00 2020-02-12 15:00:00 Outpatient Froilan Yung MHMG MHMG [id number] 2020-01-23 13:56:56 2020-01-24 17:37:00 Outpatient Stephenie Zelaya MHSE MHSE [id number] 2020-01-23 22:44:00 2020-01-23 22:44:00 Outpatient E MHSE MED [address] [place] [address] 2019-01-02 14:40:00 2019-01-02 23:59:59 Outpatient Froilan Yung MG MG [id number] 2018-09-04 12:53:00 2018-09-05 23:59:59 Outpatient MHMIS STEVE MHMISCHER [id number] 2018-09-04 12:53:00 2018-09-05 23:59:59 Outpatient MHMIS STEVE MHMISCHER [id number] 2018-06-06 14:40:00 2018-06-06 23:59:59 Outpatient Froilan Yung MHMG MHMG [id number] 2018-04-13 14:59:00 2018-04-14 23:59:59 Outpatient MHMIS STEVE MHMISCHER [id number] 2018-04-13 13:45:00 2018-04-13 23:59:59 Outpatient Chela Vasques MHMISCHER MHMISCHER [id number] 2018-03-23 16:08:00 2018-03-24 23:59:59 Outpatient MHMIS STEVE MHMISCHER [id number] 2018-03-22 12:00:00 2018-03-22 23:59:59 Outpatient Chela Vasques MHMIS[facility]ER MHMISCHER [id number] 2018-03-08 11:00:00 2018-03-08 23:59:59 Outpatient Jennifer Muniz M[facility]ER M[facility]IS[facility] [id number] 2018-02-22 13:40:00 2018-02-22 23:59:59 Outpatient Jennifer Muniz M[facility]IS[facility]ER M[facility]IS[facility]ER [id number] 2018-02-02 14:55:00 2018-02-03 23:59:59 Outpatient MHMIS STEVE MHMISCHER [id number] 2018-02-02 11:00:00 2018-02-02 23:59:59 Outpatient Layo, Chela hn C MHMISCHER MHMISCHER [id number] 2018-01-19 10:15:00 2018-01-19 10:15:00 Outpatient Chela Vasques C MHMISCHER MHMISCHER [id number] 2018-01-10 19:00:00 2018-01-10 23:59:00 Outpatient NelisMariselSherrell e MHSE MHSE [id number] 2018-01-10 19:00:00 2018-01-10 23:59:00 Outpatient NelisMariselSherrell e MHSE MHSE [id number] 2018-01-04 11:00:00 2018-01-04 23:59:59 Outpatient Chela Vasques C MHMISCHER MHMIS[facility]ER [id number] 2018-01-04 11:00:00 2018-01-04 23:59:59 Outpatient Chela Vasques C MHMISCHER M[facility]IS[facility]ER [id number] 2017-12-29 13:33:00 2017-12-30 23:59:59 Outpatient MHMIS STEVE MHMISCHER [id number] 2017-09-27 08:38:00 2017-09-27 23:59:00 Outpatient Froilan Yung S MHSE MHSE [id number] 2017-09-27 08:38:00 2017-09-27 23:59:00 Outpatient Froilan Yung MHSE MHSE [id number] 2015-09-23 19:43:00 2015-09-23 23:59:00 Outpatient TessyUche MHSE MHSE [id number] 2015-08-15 13:05:00 2015-08-19 10:56:00 Outpatient Kaz Pachecoan Valdo MHSE MHSE [id number] 2014-07-30 09:47:00 2014-07-30 23:59:00 Outpatient Froilan Yung MHIE MHIE [id number] 2014-07-16 05:39:00 2014-07-18 15:40:00 Outpatient Froilan Yung MHIE MHIE [id number] 2013-08-08 09:18:47 2013-08-08 09:18:47 Outpatient MHIE MHIE [id number] Results Test Description Test Time Test Comments Results Result Comments Source - XR HAND 3 + V RT 2020-05-07 19:57:00 [facility] DONNIE CARRASCOName: ZULAY MAKI : 1950 Sex: M FAX: Donta Laura MD [phone] [place]: St: REG -- Name: ZULAY MAKI II [facility] [place] : 1950 Age/S: 69/M [address] [place] [address] Unit #: [id number] Loc: [place] [address] Phys: Donta Laura MD Acct: [id number] Dis Date: Status: REG ER PHONE #: [phone] Exam Date: 05/07/20201939 FAX #: [phone] Reason: injury to 2nd and 3rd MTPs EXAMS: CPT CODE: [id number] XR HAND 3 + [place] [id number] 3 RADIOGRAPHIC VIEWS RIGHT HAND INDICATION: injury to 2nd and 3rd MTPs. TECHNIQUE: 3 radiographic views right hand COMPARISONS: None. FINDINGS: There is soft tissue swelling dorsal to the metacarpophalangeal joints. The lateral view demonstrates a 7 x 3 mm dorsal cortical defect of the distal 3rd metacarpal metaphysis at the area of soft tissue swelling. There is no osseous dislocation. There is no subcutaneous emphysema or retained radiodense foreign body. IMPRESSION: 1. There is soft tissue swelling dorsal to the metacarpophalangeal joints. The lateral view demonstrates a 7 x 3 mm dorsal cortical defect of the distal 3rd metacarpal metaphysis at the area of soft tissue swelling that is suspicious for an acute traumatic avulsion fracture or impaction fracture. at 195 Reported and signed by: Jagdeep Shaver D.O. CC: Donta Laura MD Technologist: RT Ella(R); RT Becca(R) Trnscrd Date/Time/By: 05/07/2020 (1956) : By: [email or web address] Orig Print D/T: S: 05/07/2020 (1999) PAGE 1 Signed Report . [facility] - COVID-19/SARS-Cov-2 2020-02-27 00:00:00 Test Item SARS-CoV-2 REPORT (test code = SARS-CoV-2 REPORT) Clin icalHistory: Z20.828 Suspected 2019 novel coronavirus infection.COVID-19/SARS-CoV-2: COVID-19/SARS-CoV-2: Negative.BodySite: Nasopharyngeal.Special Requests: COVID-19/SARS-Cov-2.CPTCode: 01139.ICDCode: Z20.828. [facility]iciansCHEM TCIXS8020-56-83 16:10:0081[facility] CHEM BYGUW6153-32-96 16:10:0026[facility]annCHE[facility] RIQSB7250-57-46 16:10:001.21 [facility] HermannCHEM JVIVZ1258-44-24 16:10:0060[facility]annCHEM PANEL 2020-02-20 16:10:0069[facility]annCHEM UYHAE9479-91-04 16:10:0021[facility]annCHEM OMVGM8529-05-28 16:10:88731Roducsai HermannCHEM XOJCO9751-54-02 16:10:005.0[facility]annCHEM JJQIW9253-32-07 16:10:05741Zioqducs HermannCHEM DHWNW5734-47-54 16:10:0029[facility]annCHEM YZAOE8806-90-51 16:10:009.1 [facility]annSPECIAL AQXZEZDGP0748-75-37 16:09:00<0.1[facility] AND PYGJY3577-19-20 15:52:00* Test Item Value Reference Range Interpretation Comments UA Spec Grav (test code = UA Spec Grav) 1.025 1 1.001-1.035 [facility] AIHHN3391-34-08 15:52:00* Test Item Value Reference Range Interpretation Comments UA pH (test code = UA pH) 5.5 1 5.0-8.0 [facility]annCHEM SGRYP6564-04-65 14:49:83092Keasymvl HermannCHEM PANEL 2020-01-24 14:49:0027[facility]annCHEM AFDZI0469-35-25 14:49:002.45[facility]annCHEM ERXRS2433-89-28 14:49:83462Qqqqontl [facility]annCHEM TQSBG3520-41-58 14:49:004.2[facility]annCHEM SXLBJ3278-03-37 14:49:48334Bzmjbxqc HermannCHEM OTUZK8930-10-77 14:49:0026[facility]annCHEM ROELX7881-62-15 14:49:008.8 [facility]annCHE[facility] SEHZR7066-77-34 14:49:009.2[facility]annCHEM PANEL 2020-01-24 14:49:0026[facility] PijwicuFHALMWAHDR3586-10-79 14:49:0082.7[facility] TbfnxvcANFBYNIIOY1067-96-54 14:49:006.5[facility] SbhqlgaQCKSEGEWKC6888-77-48 14:49:0010.0[facility] ZzgunmmXZSOKGPBCG8726-80-61 14:49:000.4[facility] PZSHSGYQFE4930-62-08 14:49:000.4[facility] DpekjscVQXGQLHIJS0159-64-76 14:49:009.1 [facility] HjbrbavZMEZKOADOK9540-71-45 14:49:000.7[facility] HermannHEMATOLOGY 2020-01-24 14:49:001.1[facility] FrgjdvoZYMMSMVUBW3183-21-27 14:49:00* Test Item Value Reference Range Interpretation Comments PT (test code = PT) 26.0 s 12.0-14.7 [facility] IgtrkqcOPMDGUPMJW8722-44-47 14:49:00* Test Item Value Reference Range Interpretation Comments INR (test code = INR) 2.33 1 0.85-1.17 [facility] QapoekpWBMKYVKHMZ5555-83-03 14:49:00* Test Item Value Reference Range Interpretation Comments PTT (test code = PTT) 46.1 s 22.9-35.8 [facility] PetejpvTHYDGKWWVM0980-89-95 14:49:0011.0[facility] HermannHEMATOLOGY 2020-01-24 14:49:004.99[facility] EesmekuCPRRHDNZGC2689-60-84 14:49:0015.5[facility] DcuyaamCYGSORBRYX5172-20-32 14:49:0045.7[facility] RwcpafsVXETRNRVCY4350-29-62 14:49:0091.7[facility] QtrryvrEVRVFNPFTG4484-29-88 14:49:00* Test Item Value Reference Range Interpretation Comments MCH (test code = MCH) 31.0 pg 27.0-31.0 [facility] NpjtnbpAIGDDTDIDG6349-40-50 14:49:0033.8[facility] HermannHEMATOLOGY 2020-01-24 14:49:0013.8[facility] GoathbrKCCXOIHUNK4595-38-96 14:49:08383Jxlussbi QiuswoaXTFLIPMHTH6505-71-94 14:49:007.3[facility] HermannCHEM XTHVH9954-96-74 02:19:44442Ydaitupl HermannCHEM FMIAM9147-32-79 02:19:0030[facility]annCHEM FBJQO2139-83-20 02:19:002.58[facility]annCHEM TFUQU3800-37-88 02:19:75789 [facility]annCHEM BIGNX1478-69-15 02:19:004.1[facility] HermannCHEM PANEL 2020-01-24 02:19:53497Hgvjqkpq HermannCHEM REUQW5765-73-70 02:19:0029[facility]annCHEM XIRAC8927-48-84 02:19:008.4[facility]annCHEM DJGRQ1118-76-63 02:19:006.1[facility]annCHEM OXCGE2690-92-95 02:19:0024[facility] AND DVIFN6395-72-13 19:51:00Yellow *NA*(01/23/20 2:51 PM)[facility] RLCHL1160-44-60 19:51:00Clear (01/23/20 2:51 PM)[facility] STOOL 2020-01-23 19:51:00* Test Item Value Reference Range Interpretation Comments UA Spec Grav (test code = UA Spec Grav) 1.021 1 [facility] JFYKF7556-24-89 19:51:00* Test Item Value Reference Range Interpretation Comments UA pH (test code = UA pH) 5.0 1 5.0-8.0 [facility] QSXBA6591-90-49 19:51:00Negative *NA*(01/23/20 2:51 PM) [facility] TFLST7352-77-55 19:51:00Moderate *ABN*(01/23/20 2:51 PM) [facility] VCCRF5529-03-99 19:51:00Negative (01/23/20 2:51 PM) [facility] VUETP4926-23-30 19:51:00Negative (01/23/20 2:51 PM) [facility] MIEVK8081-75-52 19:51:00<1[facility] JJOGP6038-45-91 19:51:001[facility]annCHEM OXYFC2960-13-75 19:32:01815 [facility]annCHE[facility] BTCXG5685-29-20 19:32:0030[facility]annCHEM PANEL 2020-01-23 19:32:002.86[facility] HermannCHEM GBHOJ6357-02-86 19:32:75856Mfeioloo HermannCHEM CGVAK3685-97-94 19:32:004.3[facility] HermannCHEM KVKJK7420-29-00 19:32:19332Etrmcajm HermannCHEM YFVFN2165-41-55 19:32:0026[facility]annCHEM STQXI6494-06-43 19:32:009.0[facility] HermannCHEM DHBOV2073-53-68 19:32:007.8 [facility]annCHEM JJEST9755-37-45 19:32:003.6[facility] HermannCHEM PANEL 2020-01-23 19:32:0028[facility]annCHEM QMAVT5862-28-29 19:32:0013[facility]annCHEM MORZH0706-10-27 19:32:0077[facility]annCHEM XRKUV8356-70-44 19:32:000.8[facility]annCHEM NEBZB2670-68-89 19:32:0010.3[facility]annCHEM OCZWS7462-35-45 19:32:00* Test Item Value Reference Range Interpretation Comments B/C Ratio (test code = B/C Ratio) 10 1 6-25 [facility]annCHEM WKZFN5087-40-96 19:32:004.2[facility] HermannCHEM PANEL 2020-01-23 19:32:00* Test Item Value Reference Range Interpretation Comments A/G Ratio (test code = A/G Ratio) 0.9 1 0.7-1.6 [facility]annCHEM KDLFB0016-75-47 19:32:0021[facility] HermannHEMATOLOGY 2020-01-23 19:32:0010.6[facility] GtledttQLYTLONUVH8256-25-99 19:32:004.92[facility] RxdqqcbSRXAHKCCUJ7529-82-68 19:32:0015.3[facility] BzavmpxNYSQTFAPIV3099-31-79 19:32:0045.2[facility] GhcnafxGZGIALCDRR3475-40-33 19:32:0092.0[facility] SDPERQPBEN3318-98-63 19:32:00* Test Item Value Reference Range Interpretation Comments MCH (test code = MCH) 31.1 pg 27.0-31.0 [facility] TmqscocOMOBWPOURP8799-33-94 19:32:0033.8[facility] HermannHEMATOLOGY 2020-01-23 19:32:0013.7[facility] XvribsfSPZOWBLLWL5022-71-08 19:32:48744Wweqnown WfwvtlpJQDXMAUVVO7288-41-21 19:32:007.2[facility] BhrpeyaHFOUNNYBWF7777-72-41 19:32:0082.2[facility] PjnblmrKRBQJJDNPZ8814-94-63 19:32:007.6[facility] LCYJZBCNGX9882-14-81 19:32:009.4[facility] WtqqbnbPWHIMLJMJC4088-00-10 19:32:000.5 [facility] UpwvalrWTWBYGMJNX2085-38-47 19:32:000.3[facility] HermannHEMATOLOGY 2020-01-23 19:32:008.7[facility] XyazrayHHNUREYYJH7084-92-00 19:32:000.8[facility] VahvagpVPWMFNFKVO1507-53-20 19:32:001.0[facility] DsvfltrNEFYDKQWXH7185-69-89 19:32:000.1[facility] HermannCOMPREHENSIVE METABOLIC ANXPM3540-34-38 14:30:00* Test Item Value Reference Range Interpretation Comments SODIUM (test code = NA) 144 mEq/L 134-147 N POTASSIUM (test code = K) 4.4 mEq/L 3.4-5.0 N CHLORIDE (test code = CL) 111 mEq/L 100-108 H CARBON DIOXIDE (test code = CO2) 29 mEq/L 21-33 N ANION GAP (test code = GAP) 8 0-20 N GLUCOSE (test code = GLU) 98 mg/dL 70-110 N BLOOD UREA NITROGEN (test code = BUN) 39 mg/dL 7-18 H GLOMERULAR FILTRATION RATE (test code = GFR) 50.1 70-80 L Units of measure = ml/min/1.73 m2 CREATININE (test code = CREAT) 1.4 mg/dL 0.6-1.3 H TOTAL PROTEIN (test code = PROT) 6.4 g/dL 6.4-8.2 N ALBUMIN (test code = ALB) 3.40 g/dL 3.4-5.0 N CALCIUM (test code = CA) 8.1 mg/dL 8.0-10.5 N BILIRUBIN TOTAL (test code = BILT) 0.40 mg/dL 0.0-1.0 N SGOT/AST (test code = AST) 23 IUnit/L 15-37 N SGPT/ALT (test code = ALT) 35 IUnit/L 15-65 N ALKALINE PHOSPHATASE TOTAL (test code = ALKP) 61 IUnit/L 20-125 N COMPREHENSIVE METABOLIC HXITN9030-79-46 14:24:00* Test Item Value Reference Range Interpretation Comments SODIUM (test code = NA) 144 mEq/L 134-147 N POTASSIUM (test code = K) 4.4 mEq/L 3.4-5.0 N CHLORIDE (test code = CL) 111 mEq/L 100-108 H CARBON DIOXIDE (test code = CO2) 29 mEq/L 21-33 N ANION GAP (test code = GAP) 8 0-20 N GLUCOSE (test code = GLU) 98 mg/dL 70-110 N BLOOD UREA NITROGEN (test code = BUN) 39 mg/dL 7-18 H GLOMERULAR FILTRATION RATE (test code = GFR) 70-80 CREATININE (test code = CREAT) mg/dL 0.6-1.3 TOTAL PROTEIN (test code = PROT) g/dL 6.4-8.2 ALBUMIN (test code = ALB) g/dL 3.4-5.0 CALCIUM (test code = CA) 8.1 mg/dL 8.0-10.5 N BILIRUBIN TOTAL (test code = BILT) mg/dL 0.0-1.0 SGOT/AST (test code = AST) IUnit/L 15-37 SGPT/ALT (test code = ALT) IUnit/L 15-65 ALKALINE PHOSPHATASE TOTAL (test code = ALKP) IUnit/L 20-125 CBC W/AUTO UCIG2328-89-97 14:08:00* Test Item Value Reference Range Interpretation Comments WHITE BLOOD CELL (test code = WBC) 4.70 x10 3/uL 4.5-11.0 N RED BLOOD CELL (test code = RBC) 4.36 x10 6/uL 4.00-5.60 N HEMOGLOBIN (test code = HGB) 13.4 g/dL 12.5-16.9 N HEMATOCRIT (test code = HCT) 40.9 % 37.5-50.7 N MEAN CELL VOLUME (test code = MCV) 93.8 fL 81.0-99.0 N MEAN CELL HGB (test code = MCH) 30.7 pg 27.0-33.0 N MEAN CELL HGB CONCETRATION (test code = MCHC) 32.8 g/dL 33.0-37. 0 L RED CELL DISTRIBUTION WIDTH CV (test code = RDW) 12.3 % 11.5- 14.5 N RED CELL DISTRIBUTION WIDTH SD (test code = RDW-SD) 42.8 fL 37 .0-54.0 N PLATELET COUNT (test code = PLT) 211 x10 3/uL 150-400 N MEAN PLATELET VOLUME (test code = MPV) 9.9 fL 7.0-9.0 H NEUTROPHIL % (test code = NT%) 50.6 % 56.0-77.0 L IMMATURE GRANULOCYTE % (test code = IG%) 0.2 % 0.0-2.0 N LYMPHOCYTE % (test code = LY%) 23.0 % 14.0-32.0 N MONOCYTE % (test code = MO%) 12.6 % 4.8-9.0 H EOSINOPHIL % (test code = EO%) 13.0 % 0.3-3.7 H BASOPHIL % (test code = BA%) 0.6 % 0.0-2.0 N NUCLEATED RBC % (test code = NRBC%) 0.0 % 0-0 N NEUTROPHIL # (test code = NT#) 2.38 x10 3/uL 2.0-7.6 N IMMATURE GRANULOCYTE # (test code = IG#) 0.01 x10 3/uL 0.00-0.03 N LYMPHOCYTE # (test code = LY#) 1.08 x10 3/uL 1.0-3.8 N MONOCYTE # (test code = MO#) 0.59 x10 3/uL 0.1-0.8 N EOSINOPHIL # (test code = EO#) 0.61 x10 3/uL 0.0-0.2 H BASOPHIL # (test code = BA#) 0.03 x10 3/uL 0.0-0.2 N NUCLEATED RBC # (test code = NRBC#) 0.00 x10 3/uL 0.0-0.1 N MANUAL DIFF REQUIRED (test code = MDIFF) NO CARDIAC TQAQPMF6694-04-45 17:02:00<0.02[facility]annCARDIAC DFZNHKN4325-70-91 17:02:0084[facility]annCARDIAC BPCYGBX5842-83-45 17:02:000.7[facility] CARDIAC RXYMUMQ7946-20-64 17:02:000.8[facility]annCARDIAC YZONAKV5342-14-19 11:50:0091[facility]annCARDIAC PURSNIR7561-47-78 11:50:001.0[facility] CARDIAC HQERLMN5085-96-66 11:50:001.1[facility]annCARDIAC POVEFMK4771-36-93 11:50:000.02[facility]annCHEM CXMFZ7479-92-41 11:50:0070[facility]annCHEM ALJBR4970-91-23 11:50:0096[facility]annCHEM SEKIW1128-64-38 11:50:0022 [facility]annCHEM MXWCU3093-44-57 11:50:41134Kwvbiptk HermannCHEM PANEL 2015-08-16 11:50:004.5[facility]annCHEM LCUSN9417-69-18 11:50:0029[facility]annCHEM KOGLM6552-95-35 11:50:008.9[facility]annCHEM RPRGS0867-63-72 11:50:008.5[facility]annCHEM UPQQP2441-45-53 11:50:24916Yvsmejgz [facility]annCHEM JWYJU1636-00-27 11:50:001.10[facility] RcbuqpwITCUEKVQAF1843-13-38 11:50:000.1 [facility] JjmtsrrINAAZPRQYQ6604-92-93 11:50:002.6[facility] HermannHEMATOLOGY 2015-08-16 11:50:004.5[facility] VgxusexUKXXCGNVPF5335-30-22 11:50:000.4[facility] DmvlgmlVQUUXOUVWY6600-08-54 11:50:000.8[facility] ChfmgssFPJHQJLIYO1031-40-16 11:50:005.0[facility] EgosrafPTPCUSPHDZ9971-80-24 11:50:009.2[facility] HIIBFSUJIK6548-91-38 11:50:0030.7[facility] TwqypzvLEQVRNIIRP6131-48-85 11:50:00 54.1[facility] YwugmlrRGLKBDICSP0158-33-56 11:50:001.0[facility] HermannHEMATOLOGY 2015-08-16 11:50:0016.3[facility] LqllyviCOLFDONLLO9754-75-08 11:50:005.39[facility] KuszrrcVOOQFKOKFX3114-35-09 11:50:008.3[facility] FsqnezhICSLDLZVRU7966-02-72 11:50:00* Test Item Value Reference Range Interpretation Comments MCH (test code = MCH) 30.2 pg 27.0-31.0 [facility] RfyfhagXZZQQKSQDD4158-32-03 11:50:0089.1[facility] HermannHEMATOLOGY 2015-08-16 11:50:0048.0[facility] LbmztvlPTLRSFUTQI0455-16-82 11:50:43669Mbgloupq XmffokhUVNBVBUQGY4989-30-27 11:50:0013.2[facility] FkmagozETYOHLNENI2887-78-22 11:50:0033.9[facility] IhmykaoISVKUUZYCM7159-77-25 11:50:008.3[facility] CARDIAC NXFHHPQ9318-50-90 04:04:000.9[facility]annCARDIAC SNTQRQH7678-51-14 04:04:000.03[facility]annCARDIAC CYRWVJM2062-16-42 04:04:0087[facility] CARDIAC GTCJFQR5823-55-54 04:04:001.0[facility] HermannCHEM KIANN0034-83-17 21:28:0053[facility]annCHEM RDKZQ5415-53-86 21:28:009.0[facility]annCHEM SPGUK9078-70-74 21:28:007.9[facility]annCHEM RKQTQ2384-83-16 21:28:003.9 [facility]annCHEM WPHZT8954-58-44 21:28:0017[facility]annCHEM PANEL 2015-08-15 21:28:004.0[facility]annCHEM HCFTK5667-40-11 21:28:001.0[facility]annCHEM CCSVQ3472-15-43 21:28:0063[facility]annCHEM XWGDM1315-29-24 21:28:000.5[facility]annCHEM DSIVL5410-60-00 21:28:0036[facility]annCHEM ETKCM8351-68-90 21:28:0016[facility]annCHEM EUUDC9408-71-46 21:28:91431 [facility]annCHEM LWYJI5998-38-63 21:28:004.0[facility]annCHEM PANEL 2015-08-15 21:28:98183Mkznsnnf HermannCHEM FUWWV9912-27-74 21:28:0027[facility]annCHEM HKRGS7901-73-48 21:28:008.7[facility]annCHEM JBIVM9659-90-80 21:28:37103Jafjjmxe [facility]annCHEM QFHHS7658-97-64 21:28:0023[facility]annCHEM PLPHL5634-04-20 21:28:001.38[facility] EgxjqmmDXLILQVCHT7220-04-90 21:28:000.3 [facility] JkwtscaUSCESNGWRO1979-16-27 21:28:000.1[facility]annHEMATOLOGY 2015-08-15 21:28:0067.7[facility] FdmfovkOTKUTNNNMQ9102-59-02 21:28:000.7[facility] KmgmtqvFEQSWQWZBJ2064-86-22 21:28:003.6[facility] RcoivewYYUANNPDZV2036-80-29 21:28:006.0[facility] UfghdexZGNIVRTPWL3184-44-58 21:28:000.7[facility] IZOOILOTVD6297-22-78 21:28:001.8[facility] EehkkzkAFZENNDAWZ7510-10-20 21:28:008.3 [facility] ApjhnblHMYSEAYGNN0542-18-58 21:28:0019.7[facility] HermannHEMATOLOGY 2015-08-15 21:28:0016.7[facility] QfpogbcROPYRMJBIB8679-70-77 21:28:008.9[facility] BjjdjwsZSGCKXXKEF9564-80-09 21:28:0049.7[facility] EgyqievVMCONYZAZY9444-17-04 21:28:005.55[facility] HaxolysZZXIYGMAGG6241-40-72 21:28:00* Test Item Value Reference Range Interpretation Comments MCH (test code = MCH) 30.1 pg 27.0-31.0 [facility] LaamndbVHNTGDMHQV8319-50-77 21:28:0012.9[facility] HermannHEMATOLOGY 2015-08-15 21:28:0033.6[facility] AmfuecnXVQFCEVFNN5073-12-23 21:28:0089.6[facility] AmnvhjhBZETOWFHCS2098-51-35 21:28:007.9[facility] TtcbnobNWROFNKIOE5353-04-87 21:28:90033Kuavhqrw HermannCHEM PELIM8719-80-19 11:17:002.0[facility]annCHEM TDQYT5291-72-98 11:17:008.6[facility]annCHEM WHTVU8117-98-07 11:17:0063 [facility]annCHEM AVCLI1586-32-39 11:17:0028[facility]annCHEM PANEL 2014-07-17 11:17:001.2[facility]annCHEM AIZAG4817-22-82 11:17:0011[facility]annCHEM QGWHL3902-15-16 11:17:008.6[facility] HermannCHEM JGOJC3741-75-83 11:17:09527Qshonets HermannCHEM TSANZ9826-95-84 11:17:31680Mqjokigk [facility]annCHEM ZRWOB8247-63-70 11:17:003.6[facility]annCHEM PJKJK0083-72-51 11:17:76348 [facility]annCHEM FWRWU2890-08-16 11:17:0010.6[facility] HermannHEMATOLOGY 2014-07-17 11:17:001.0[facility] PsreqagIJWDYDEPAR2254-06-87 11:17:001.0[facility] KcomrcvFWFIZCXNZZ9511-83-83 11:17:006.2[facility] CvkokmfJYPLRYVWZY2954-72-23 11:17:000.3[facility] GlyatppQHMQPXAGCA1910-42-58 11:17:0012.5[facility] TQNWRATFAQ0913-96-82 11:17:000.4[facility] OecbikjIDQIQKVYEN5629-12-08 11:17:00 12.4[facility] UacziguKHVMVZBUJR1339-57-16 11:17:0074.4[facility] HermannHEMATOLOGY 2014-07-17 11:17:00* Test Item Value Reference Range Interpretation Comments MCH (test code = MCH) 30.7 pg 27.0-31.0 [facility] RmqurtcBDCBTQFWGU0065-78-17 11:17:0034.4[facility] HermannHEMATOLOGY 2014-07-17 11:17:0089.4[facility] AishbsnVPOPSOHQLP5782-98-13 11:17:0036.6[facility] MoiybzaQQSBVHPWRN3038-29-40 11:17:0012.6[facility] HiubkqsCVZBCLYAMY0176-68-94 11:17:008.4[facility] CjgrxqpCTWBYPRHOQ0540-71-46 11:17:004.09[facility] JFWBKUZTEV3724-25-94 11:17:93298Xauhsdbr FomldhtXKRZYMUBLN2304-90-54 11:17:007.6 [facility] AdiuxykBDYAHWXXPG4573-05-59 11:17:0013.0[facility] HermannCHEM PANEL 2014-07-16 20:05:001.8[facility] HermannCHEM LLDNY0957-83-13 20:05:0048[facility] HermannCHEM EKOTT9805-18-77 20:05:27615Xttrlyhn HermannCHEM PQTBR0515-06-57 20:05:001.5[facility] HermannCHEM DMMNF1912-60-77 20:05:0019[facility]annCHEM ZRKAT9441-52-40 20:05:004.1[facility] HermannCHEM PWQYY6663-79-61 20:05:72676 [facility]annCHEM XLUEC6232-91-27 20:05:42613Xbagdxjk HermannCHEM PANEL 2014-07-16 20:05:009.1[facility] HermannCHEM TCOIY8127-72-91 20:05:007.7[facility] HermannCHEM DVRDA1854-25-95 20:05:0025[facility] MusrruyWBCRVUMBVB5219-41-93 20:05:00* Test Item Value Reference Range Interpretation Comments PTT (test code = PTT) 31.7 s 22.9-35.8 [facility] NhzcckxYODVRYCVKY6490-26-97 20:05:0013.5[facility] HermannHEMATOLOGY 2014-07-16 20:05:0089.7[facility] ZqcrrrbJYYPGYGWJU8413-59-88 20:05:0038.3[facility] UtpmgghAWWKZUVWBN9680-49-97 20:05:00* Test Item Value Reference Range Interpretation Comments MCH (test code = MCH) 30.9 pg 27.0-31.0 [facility] FywwseiOJKHEZFRDH4279-04-58 20:05:0013.2[facility] HermannHEMATOLOGY 2014-07-16 20:05:004.27[facility] LgtlmwtYVPDVWQUXM0811-81-11 20:05:0012.9[facility] WfmlhtePMAGIWLMNC9944-51-97 20:05:78894Vkoubzou PwhulgcKQPQBOASTQ3105-19-80 20:05:0034.4[facility] MlfsuebIDETEURMXG8287-38-99 20:05:007.3[facility] BLOOD BANK GCJGKBX8755-02-89 17:23:00Product available 1(07/09/14 11:23 AM) [facility]BLOOD BANK UWGBNIT2654-36-22 16:36:00Negative (07/09/14 10:36 AM) [facility] UuqvegdUCMHJNHXECUC5350-92-47 16:36:009.1[facility]annELECTROLYTES 2014-07-09 16:36:0063[facility] UapmgytVKTSPZXIKPPI9468-12-30 16:36:0029[facility] RtfilgtUODSOUKIXREL2488-92-19 16:36:0023[facility] XezyxwuENATILVSGHSM5303-64-63 16:36:001.2[facility] SzokkmtNYFHTPKRZJZF1539-60-06 16:36:0097[facility] CQEQXOEJPTPM0836-27-64 16:36:55861Mzvzcwri ArnvmgjWBULLOUOLOVS7029-09-33 16:36:004.1[facility] InkowhyVONWGVHJTIJT1211-30-88 16:36:07580Qpikqmko [place] KNTSLTHZMD8400-97-35 16:36:001.2[facility] GbamybxPCKJVPDOLC3263-39-03 16:36:005.9 [facility] GtyccjaCLLXOQTOHH1861-12-83 16:36:0024.0[facility]annHEMATOLOGY 2014-07-09 16:36:0011.2[facility] PnbwplhNKKPPSPNSY3578-27-39 16:36:0057.7[facility] RezzekzKPLBIYJUXZ9214-93-68 16:36:000.1[facility] RnstebxCGNQKAOQIN5190-14-16 16:36:000.3[facility] MnwpmvhWYWFKXFAVD8700-51-70 16:36:000.6[facility] XFETYLYXLZ9409-38-26 16:36:001.2[facility] FrnnnukVQHGNDATLM1669-82-28 16:36:003.0 [facility] PgrspwuAIMKCLYUZR9125-53-81 16:36:000.99[facility]annHEMATOLOGY 2014-07-09 16:36:00* Test Item Value Reference Range Interpretation Comments PT (test code = PT) 13.1 s 12.0-14.7 [facility] SmbexepMALRDIMOVJ1364-98-86 16:36:00* Test Item Value Reference Range Interpretation Comments PTT (test code = PTT) 35.2 s 22.9-35.8 [facility] QegbrlaDHIUZJUMDY3488-60-53 16:36:0012.9[facility]annHEMATOLOGY 2014-07-09 16:36:78481Uibcqzvg EvzdpqqQICWAQDPWW2365-72-48 16:36:00* Test Item Value Reference Range Interpretation Comments MCH (test code = MCH) 31.6 pg 27.0-31.0 [facility] CctglruCBZAMNEXWH5915-37-73 16:36:0034.9[facility]annHEMATOLOGY 2014-07-09 16:36:007.7[facility] DzhoabnUUVXFYRZLI7881-17-42 16:36:0012.9[facility] HhojclvTJSEAPHXJF8784-51-61 16:36:0037.1[facility] ArfvrkkGPFLLJMMQE2635-16-01 16:36:005.1[facility] VtuhqwpRUVUNZSJXO9955-60-19 16:36:004.10[facility] BHHRXUHSXZ1273-21-19 16:36:0090.5[facility]annSPECIAL DMIRJJIJT9214-16-12 16:36:002.95[facility]annURINE AND VGVQJ7041-47-42 16:36:00Negative (07/09/14 10:36 AM)[facility] AZATB5109-62-18 16:36:001[facility] URINE AND DWVZA1238-34-70 16:36:00Negative (07/09/14 10:36 AM)[facility] URINE AND VAREW3559-38-15 16:36:00Negative (07/09/14 10:36 AM)[facility] URINE AND ALLBT0036-01-68 16:36:00Negative *NA*(07/09/14 10:36 AM)[facility] FZKRN2002-75-48 16:36:001[facility] STOOL 2014-07-09 16:36:001.019[facility] RNCFT2472-20-44 16:36:00Clear (07/09/14 10:36 AM)[facility] TXOIV5071-85-52 16:36:00Yellow *NA*(07/09/14 10:36 AM)[facility] ETHVD9731-71-27 16:36:005.0 [facility]
--- OUTSIDE RECORDS SUMMARY | 2020-05-18 17:29 | XMS REPORT | Continuity of Care Document ---
Author Author ZULAY Aranda Organization [facility] Address Unknown Phone Unavailable Care Team Providers Care Digital Media Producer Name Role Phone [employer] Information [employer] Unavailable Un available Problems Problem Status Onset Date Classification Date Reported Comments Source N20.0 . N28.89 Active 03/05/2020 [facility] DX: N13.30=UNSPECIFIED HYDRONEPHROSIS, N Active 02/20/2020 [facility] Disorder of kidney and ureter, unspecified 01/23/2020 01/26/2020 [facility] Constipation, unspecified 01/23/2020 01/26/2020 [facility] ACUTE RENAL INSUFFICIENCY Acti ve 01/23/2020 [facility] CONSTIPATION Active 01/23/2020 [facility] Other spondylosis with radiculopathy, lumbar region 01/14/2018 07/30/2018 [facility] DX: M54.16=RADICULOPATHY, LUMBAR REGION, Active 01/05/2018 [facility] Unspecified abdominal pain 10/05/2017 01/03/[address] [facility] [address] ABD/PEL WO RENAL STONE PROTOCO Active 08/31/2017 [facility] FIRST NIGHT [address] Active 09/05/2015 [facility] ACUTE AFIB WITH RVR NEW ONSET Active 08/15/2015 [facility] LIGHT HEADEDNESS Active 08/15/2015 [facility] PROSTATE CA...PT ALREADY HAS CATH DO NOT Active 07/23/2014 [facility] UNK Active 1 07/30/2013 [facility] Arthropathy (disorder) Resolved Problem [facility]/28[facility] Atrial fibrillation (disorder) Active Problem 02/2020 [facility] Backache (finding) Resolved Problem 03/28/2020 [facility] Malignant tumor of prostate (disorder) Active Problem [facility] Erectile dysfunction following radical prostatectomy Resolved Problem 03/28/2020 [facility] External hemorrhoids (disorder) Resolved Problem 02/2020 [facility] Gastroesophageal reflux disease (disorder) Resolved Problem 03/28/2020 [facility] Hypertensive disorder, systemic arterial (disorder) Active Problem 03/28/2020 [facility] Calculus of kidney 01/03/2018 [facility] Cyst of kidney, acquired 01/03/2018 [facility] Low back pain 07/30/2018 [facility] Spondylosis without myelopathy or radicu lopathy, lumbosacral region 07/30/2018 [facility] Final: Obstructive sleep apnea (adult) (pediatric) 09/26/2015 [facility] Chronic kidney disease stage 2 (disorder) Active Problem 03/28/2020 [facility] History of radical prostatectomy (situation) Active Problem 03/28/2020 [facility] Sleep apnea (finding) [facility]2013 [facility] Hypertension Active 08/08/2013 [facility] MALIGN NEOPL PROSTATE Active [facility] UNSPECIFIED ATRIAL FIBRILLATION Active [facility] OBSTRUCTIVE SLEEP APNEA (ADULT) (PEDIATR Active [facility] UNSPECIFIED ABDOMINAL PAIN Act august[facility] RADICULOPATHY, LUMBAR REGION A ctive [facility] DISORDER OF KIDNEY AND URETER, UNSPECIFI Active [facility] UNSPECIFIED HYDRONEPHROSIS Act [facility] CALCULUS OF KIDNEY Active [facility] OTHER SPECIFIED DISORDERS OF KIDNEY AND Active [facility] Medications Medication Details Route Status Patient Instructions Ordering Provider Order Date Source Tamsulosin hydrochloride 0.4 MG Oral Capsule [Flomax] 0.4 mg = 1 cap, PO, Daily, # 30 cap, 11 Refill(s), Pharmacy: [id number], 190.5, cm, 02/20/20 10:43:00 CDT, Height, 105.909, kg, 02/20/20 10:43:00 CDT, Weight Active 02/20/2020 [facility] sennosides, SENIOR CARE Notes: (Same a s: Senokot) Inactive 01/25/2020 [facility] Amitriptyline Notes: (Same as: Elavil) Inactive 01/25/2020 [facility] tamsulosin 0.4 mg oral capsule 0.4 mg = 1 cap, PO, After Breakfast, # 30 cap, 0 Refill(s), [id number], 190.5, cm, 01/23/20 23:38:00 CDT, Height, 102.727, kg, 01/23/20 23:38:00 CDT, Weight Active 01/24/2020 [facility] Fleet Enema 133 mL, Route: [place], Drug Form: ISH, Dosing Weight 102.727, kg, ONCE, Start date: 01/24/20 12:33:00 CDT, Stop date: 01/24/20 12:33:00 CDT, 0 Inactive 01/24/2020 [facility] sennosides, SENIOR CARE 8.6 MG Oral Tablet Notes: (Same as: Senokot) Inactive 01/24/2020 [facility] Flomax Notes: (Same As: Flomax ) "Do Not Crush" Inactive 01/24/2020 [facility] Docusate Notes: (Same as: Cola ce) (Do Not Crush) Inactive 01/24/2020 [facility] POLYETHYLENE GLYCOL 3350 Notes : Dissolve in 8 oz of water or juice. (Same as: Miralax) Inactive 01/24/2020 [facility] atorvastatin Notes: (Same as: Lipitor) Inactive 01/24/2020 [facility] gabapentin 300 MG Oral Capsule Notes: (Same as: Neurontin) Inactive 01/24/2020 [facility] 24 HR Metoprolol Tartrate 50 MG Extended Release Tablet [Toprol] Notes: (Same as: Toprol XL) May split t ab, but do not crush. Inactive 01/24/2020 [facility] Ceftriaxone Notes: (Same As: Jesse enamorado). Use with 100 mL NS and infuse over 30 min MEDICATION WASTE Product Size: 1000 mg Product Wasted: ___ mg Inactive 01/24/2020 [facility] Ondansetron Notes: (Same as: Jorge orourke) MEDICATION WASTE Product Size: 4 mg Product Wasted: ___ mg Inactive 01/24/2020 [facility] Dextrose 50% Syringe (D50W) 12 .5 gm, 25 mL, Route: IVP, Drug Form: INJ, Dosing Weight 102.727, kg, PRN, PRN Blood Glucose Results, Start date: 01/24/20 0:31:00 CDT, Duration: 30 day, Stop date: 02/23/20 0:30:00 CDT, 0 Inactive 01/24/2020 [facility] Glucagon 1 mg, Route: IM, Drug form: PDR/INJ, PRN, Dosing Weight 102.727, kg, PRN Blood Glucose Results, Start date: 01/24/20 0:31:00 CDT, Duration: 30 day, Stop date: 02/23/20 0:30:00 CDT, 0 Inactive 01/24/2020 [facility] Melatonin Notes: (Same as: Asia atonin) Inactive 01/24/2020 [facility] Acetaminophen Notes: Do not ex ceed 4 gm/day. (Same as: Tylenol) Inactive 01/24/2020 [facility] Lactated Ringers IV 1,000 mL 1 ,000 mL, Rate: 125 ml/hr, Infuse over: 8 hr, Route: IV, Dosing Weight 102.727 kg, Total Volume: 1,000, Start date: 01/24/20 0:31:00 CDT, Duration: 30 day, Stop date: 02/23/20 0:30:00 CDT, 2.34, m2, 0 Inactive 01/24/2020 [facility] Saline Flush 0.9% Notes: (Same as: BD Posiflush) Inactive 01/24/2020 [facility] Hydromorphone Notes: Same as: Dilaudid Inactive 01/24/2020 [facility] amitriptyline 75 mg oral tablet 75 mg = 1 tab, PO, Bedtime, # 30 tab, 0 Refill(s) Active 01/24/2020 [facility] Centrum Silver Men's PO, Daily , 0 Refill(s) Active 01/24/2020 [facility] GoLYTELY oral powder for reconstitution 240 mL, PO, Q10Min, X 1 day, # 1 ea, 0 Refill(s), Pharmacy: [id number], 190.5, cm, 01/23/20 14:14:00 CDT, Height, 102.727, kg, 01/23/20 14:14:00 CDT, Weight No Longer Active 01/24/2020 [facility] NS (Bolus) IV 1,000 mL, 1,000 ml/hr, Infuse Over: 1 hr, Route: IV, 1,000, Drug form: INJ, ONCE, Priority: STAT, Dosing Weight 102.727 kg, Start date: 01/23/20 18:26:00 CDT, Stop date: 01/23/20 18:26:00 CDT, 0 Inactive 01/23/2020 [facility] atorvastatin 40 mg oral tablet 0 Refill(s) Active 01/02/[facility] gabapentin 600 MG Oral Tablet See Instructions, 600mg in the morning, 600mg in the afternoon and 1200 at night., # 240 tab, 2 Refill(s), Pharmacy: [id number] Active 05/15/2018 [facility] gabapentin 600 MG Oral Tablet 600 mg = 1 tab, PO, Daily, 2 Caps PO qhs, # 60 tab, 0 Refill(s), Pharmacy: [id number] Active 04/13/2018 [facility] celecoxib 200 MG Oral Capsule [Celebrex] 200 mg = 1 cap, PO, BID, # 60 cap, 0 Refill(s), Pharmacy: [facility] Active 03/23/2018 [facility] Sodium Chloride 2 mL, Route: M ISC, Dosing Weight 113.636, kg, ONCE, (Preservative Free), Use to Dilute Medication, Start date: 03/22/18 12:32:00 CDT, Stop date: 03/22/18 12:32:00 CDT No Longer Active 03/22/2018 [facility] Omnipaque 300 2 mL, Route: EPI DURAL, Dosing Weight 113.636, kg, ONCE, Start date: 03/22/18 12:32:00 CDT, Stop date: 03/22/18 12:32:00 CDT No Longer Active 03/22/2018 [facility] Lidocaine Hydrochloride 10 MG/ML Injectable Solution 10 mL, Route: SUB-Q, Dosing Weight 113.636, kg, ONCE, Start date: 03/22/18 12:32:00 CDT, Stop date: 03/22/18 12:32:00 CDT No Longer Active 03/22/2018 [facility] Dexamethasone 10 mg, Route: EP IDURAL, ONCE, Dosing Weight 113.636, kg, (Preservative Free), Start date: 03/22/18 12:32:00 CDT, Stop date: 03/22/18 12:32:00 CDT N o Longer Active 03/22/2018 [facility] Bupivacaine Hydrochloride 5 MG/ML Injectable Solution 4 mL, Route: intra-ARTICULAR, Dosing Weight 113.636, kg, ONCE, (Preservative Free), Start date: 03/22/18 12:32:00 CDT, Stop date: 03/22/18 12:32:00 CDT No Longer Active 03/22/2018 [facility] celecoxib 200 MG Oral Capsule [Celebrex] 200 mg = 1 cap, PO, BID, # 60 cap, 0 Refill(s), [facility] [id number] No Longer Active 02/22/2018 [facility] gabapentin 300 MG Oral Capsule 300 mg = 1 cap, PO, TID, # 90 cap, 0 Refill(s), [id number] Active 02/22/2018 [facility] Omnipaque 300 2 mL, Route: EPI DURAL, Dosing Weight 102.045, kg, ONCE, Start date: 02/22/18 13:20:00 CDT, Stop date: 02/22/18 13:20:00 CDT No Longer Active 02/22/2018 [facility] Depo-Medrol 40 mg, Route: intr a-ARTICULAR, Drug form: SUSP, ONCE, Dosing Weight 102.045, kg, Start date: 02/22/18 13:20:00 CDT, Stop date: 02/22/18 13:20:00 CDT No Longer Active 02/22/2018 [facility] Lidocaine Hydrochloride 10 MG/ML Injectable Solution 10 mL, Route: SUB-Q, Dosing Weight 102.045, kg, ONCE, Start date: 02/22/18 13:20:00 CDT, Stop date: 02/22/18 13:20:00 CDT No Longer Active 02/22/2018 [facility] Dexamethasone 10 mg, Route: EP IDURAL, ONCE, Dosing Weight 102.045, kg, (Preservative Free), Start date: 02/22/18 13:20:00 CDT, Stop date: 02/22/18 13:20:00 CDT N o Longer Active 02/22/2018 [facility] Bupivacaine Hydrochloride 2.5 MG/ML Injectable Solutio n 4 mL, Route: intra-ARTICULAR, Dosing Weight 102.045, kg, ONCE, (Preservative Free), Start date: 02/22/18 13:20:00 CDT, Stop date: 02/22/18 13:20:00 CDT No Longer Active 02/22/2018 [facility] gabapentin 300 MG Oral Capsule 300 mg = 1 cap, PO, Daily, 1 cap PO at night, # 30 cap, 1 Refill(s), Pharmacy: [facility] [id number] Active 02/02/2018 [facility] celecoxib 100 MG Oral Capsule [Celebrex] 100 mg = 1 cap, PO, BID, 1 cap PO BID, # 60 cap, 1 Refill(s), Pharmacy: [facility] [id number] Active 02/02/2018 [facility] amitriptyline 75 mg oral tablet 75 mg = 1 tab, PO, Bedtime, 0 Refill(s) Active 02/02/2018 [facility] amLODIPine 5 mg oral tablet 5 mg = 1 tab, PO, Daily, # 30 tab, 0 Refill(s) Active 01/04/2018 [facility] warfarin 3 mg oral tablet 3 mg = 1 tab, PO, Daily, # 30 tab, 0 Refill(s) Active 01/04/2018 [facility] apixaban 5 MG Oral Tablet [Eliquis] 5 mg = 1 tab, PO, BID, post-knee replacement surgery, # 60 tab, 3 Refill(s) Active 08/19/2015 [facility] metoprolol tartrate 50 mg oral tablet 50 mg = 1 tab, PO, Q12H, # 60 tab, 6 Refill(s) Active 08/19/2015 [facility] remove patch Notes: Remove pat ch 12 hours after application each day. No Longe r Active 08/19/2015 [facility] Lovenox Notes: Nurse to ensure documentation of patient education per anticoagulation policy. (Same as: Lovenox) No Longer Active 08/19/2015 [facility] Lidocaine Hydrochloride 0.05 MG/MG Trans dermal Patch [Lidoderm] Notes: Apply only once for up to 12 hour s in a 24-hour period (12 hours on and 12 hours off). (Same as: Lidoderm) "Remove old patch before application of new patch" No Longer Active 08/18/2015 [facility] metoprolol tartrate Notes: (Sa me as: Lopressor) No Longer Active 08/18/2015 [facility] NS 250 mL 250 mL, Rate: 25 ml/ hr, Infuse over: 10 hr, Route: IV, Dosing Weight 99 kg, Total Volume: 250, Start date: 08/17/15 14:56:00, Duration: 1 day, Stop date: 08/18/15 14:55:00 No Longer Active 08/17/2015 [facility] Fentanyl Notes: (Same as: Subl imaze) Preservative free. No Longer Active 08/17/2015 [facility] Versed Notes: (Same as: Versed ) MEDICATION WASTE Product Size: 5 mg Product Wasted: ___ mg No Longer Active 08/17/2015 [facility] Hurricaine Notes: (Same As: De rmoplast) WASTE: Aerosol - Return to Pharmacy FOR EXTERNAL USE ONLY No Longer Active 08/17/2015 [facility] Simvastatin Notes: (Same as: Jorge ocor) No Longer Active 08/17/2015 [facility] Amitriptyline Notes: (Same as: Elavil) No Longer Active 08/17/2015 [facility] Eliquis Notes: Same as: Eliquis No Longer Active 08/17/2015 [facility] Mobic Notes: (Same as: Mobic) No Longer Active 08/16/2015 [facility] meloxicam Notes: (Same as: Mob ic) Inactive 08/16/2015 [facility] Digoxin Notes: (Same as: Lanox in) Inactive 08/16/2015 [facility] metoprolol tartrate Notes: (Sa me as: Lopressor) No Longer Active 08/16/2015 [facility] Lovenox Notes: Nurse to ensure documentation of patient education per anticoagulation policy. (Same as: Lovenox) Inactive 08/16/2015 [facility] metoprolol 50 mg oral tablet, extended release 50 mg = 1 tab, PO, Daily, # 90 tab, 0 Refill(s) No Longer Active 08/16/2015 [facility] Diltiazem Notes: (Same as: Car dizem) No Longer Active 08/16/2015 [facility] Morphine Notes: (Same as:MORPh ine Sulfate) No Longer Active 08/16/2015 [facility] Docusate Notes: (Same as: Cola ce) (Do Not Crush) No Longer Active 08/16/2015 [facility] Ondansetron Notes: (Same as: Jorge orourke) MEDICATION WASTE Product Size: 4 mg Product Wasted: ___ mg No Longer Active 08/16/2015 [facility] Acetaminophen Notes: Do not ex ceed 4 gm/day. (Same as: Tylenol) No Longer Active 08/16/2015 [facility] Lovenox Notes: Nurse to ensure documentation of patient education per anticoagulation policy. (Same as: Lovenox) Inactive 08/15/2015 [facility] Digoxin Notes: (Same as: Lanox in) Inactive 08/15/2015 [facility] Cardizem Notes: (Same as: Card izem) Inactive 08/15/2015 [facility] Sodium Chloride 0.154 MEQ/ML Injectable Solution 500 mL, 500 ml/hr, Infuse Over: 1 hr, Route: IV, 500, Drug form: INJ, ONCE, Priority: STAT, Dosing Weight 100 kg, Start date: 08/15/15 14:42:00, Duration: 1 doses or times, Stop date: 08/15/15 14:42:00 Inactive 08/15/2015 [facility] Docusate Sodium 100 MG Oral Capsule [Colace] 100 mg, 1 cap, Route: PO, BID, Dosing Weight 104.545, kg, Start date: 07/18/14 9:00:00, Duration: 30 day, Stop date: 08/16/14 17:00:00 Inactive 07/18/2014 [facility] Levaquin Notes: Do not give w/ antacids, dairy pdt & minerals Take 1 hr before or 2 hr after dairy pdt (Same as:Levaquin) No Longer Active 07/17/2014 [facility] Ketorolac Tromethamine 30 MG/ML Injectable Solution 4 days No Longer Active 07/17/2014 [facility] pneumococcal capsular polysaccharide typ e 1 vaccine / pneumococcal capsular polysaccharide type 10A vaccine / pneumococcal capsular polysaccharide type 11A vaccine / pneumococcal capsular polysaccharide type 12F vaccine / pneumococcal capsular polysacchar Notes: (Same as: Pneumovax 23) Refrigerate Inactive 07/17/2014 [facility] Influenza Virus Vaccine, Inactivated A-B [id number] (H3N2)-like virus (S-[id number] [facility] X-175C) strain / Influenza Virus Vaccine, Inactivated R-Xiwtciow-08-2007, IVR-148 (H1N1) strain / Influenza Virus Vaccine, Inactivated, L-Cyfsjnj-3-2006-lik Notes: (Same as: Fluzone Quadrivalent) Inactive 07/17/2014 [facility] 24 HR Metoprolol Tartrate 25 MG Extended Release Tablet [Toprol] Notes: (Same as: Toprol XL) Do Not Crush No Longer Active 07/17/2014 [facility] Lovenox Notes: (Same as: Loven ox) No Longer Active 07/17/2014 [facility] Amlodipine Notes: (Same as: No rvasc) No Longer Active 07/17/2014 [facility] Cipro Notes: Do not refrigerate No Longer Active 07/17/2014 [facility] Famotidine Notes: (Same as: Pe pcid) No Longer Active 07/17/2014 [facility] tadalafil 5 MG Oral Tablet [Cialis] 5 mg = 1 tab, PO, Daily, for erectile dysfunction, 0 Refill(s) Active 07/17/2014 [facility] metoprolol 25 mg oral tablet, extended release 0 Refill(s) Active 07/17/2014 [facility] Calcium Gluconate 1,000 mg, 10 mL, Route: IVPB, ONCE, Dosing Weight 104.545, kg, Start date: 07/16/14 17:41:00, Stop date: 07/16/14 17:41:00 Inactive 07/16/2014 [facility] Docusate Sodium 100 MG Oral Capsule Notes: (Same as: Colace) (Do Not Crush) No Longer Active 07/16/2014 [facility] 10 ML Cefazolin 100 MG/ML Prefilled Syringe 1 gm, 100 mL, Route: IVPB, Drug form: INJ, Q8H, Dosing Weight 104.545, kg, Start date: 07/16/14 16:00:00, Duration: 3 doses or times, Stop date: 07/17/14 8:00:00 No Longer Active 07/16/2014 [facility] Promethazine 6.25 mg, Route: I VPB, ONCE, Dosing Weight 104.545, kg, PRN Nausea & Vomiting, Start date: 07/16/14 13:43:00 Inactive 07/16/2014 [facility] Diphenhydramine 12.5 mg, Route : IVP, Drug form: INJ, Q6H, Dosing Weight 104.545, kg, PRN Itching, Start date: 07/16/14 13:43:00, Duration: 30 day, Stop date: 08/15/14 13:42:00 Inactive 07/16/2014 [facility] Morphine 4 mg, Route: IVP, Q5M in, Dosing Weight 104.545, kg, PRN Pain Score 7-10, Start date: 07/16/14 13:43:00, Duration: 3 doses or times, Stop date: Limited # of times Inactive 07/16/2014 [facility] Meperidine 12.5 mg, Route: IVP , Q30Min, Dosing Weight 104.545, kg, PRN Other -See Comment, For shivering, Start date: 07/16/14 13:43:00, Duration: 2 doses or times, Stop date: Limited # of times Inactive 07/16/2014 [facility] Hydromorphone 0.5 mg, Route: I [facility] TECH, Q5Min, Dosing Weight 104.545, kg, PRN Pain Score 7-10, Start date: 07/16/14 13:43:00, Duration: 4 doses or times, Stop date: Limited # of times Inactive 07/16/2014 [facility] Flumazenil 0.2 mg, Route: IVP, PRN, Dosing Weight 104.545, kg, PRN Benzodiazepine Reversal, Initial dose, Start date: 07/16/14 13:43:00, Duration: 30 day, Stop date: 08/15/14 13:42:00 Inactive 07/16/2014 [facility] Ondansetron 4 mg, Route: IVP, ONCE, Dosing Weight 104.545, kg, PRN Nausea & Vomiting, Start date: 07/16/14 13:43:00 Inactive 07/16/2014 [facility] Oxycodone 10 mg, Route: PO, Dr ug form: TAB, Q4H, Dosing Weight 104.545, kg, PRN Pain Score 7-10, Start date: 07/16/14 13:43:00, Duration: 30 day, Stop date: 08/15/14 13:42:00 Inactive 07/16/2014 [facility] Oxycodone Hydrochloride 1 MG/ML Oral Solution 5 mg, Route: NG, Drug form: LIQ, Q4H, Dosing Weight 104.545, kg, PRN Pain Score 4-6, Start date: 07/16/14 13:43:00, Duration: 30 day, Stop date: 08/15/14 13:42:00 Inactive 07/16/2014 [facility] Acetaminophen 1,000 mg, Route: IVPB, Drug form: INJ, ONCE, Dosing Weight 104.545, kg, PRN Pain Score 1-3, Start date: 07/16/14 13:43:00, Duration: 1 doses or times, Stop date: Limited # of times Inactive 07/16/2014 [facility] Naloxone 0.04 mg, Route: IVP, Q2MIN, Dosing Weight 104.545, kg, PRN Narcotic Reversal, Start date: 07/16/14 13:43:00, Duration: 8 doses or times, Stop date: Limited # of times Inactive 07/16/2014 [facility] Ketorolac 30 mg, Route: IVP, O NCE, Dosing Weight 104.545, kg, Start date: 07/16/14 13:43:00, Duration: 1 doses or times, Stop date: 07/16/14 13:43:00 Inactive 07/16/2014 [facility] Fentanyl 50 microgram, Route: IVP, Q5Min, Dosing Weight 104.545, kg, PRN Pain Score 7-10, Start date: 07/16/14 13:43:00, Duration: 2 doses or times, Stop date: Limited # of times Inactive 07/16/2014 [facility] Calcium Chloride 0.0014 MEQ/ML / Potassi um Chloride 0.004 MEQ/ML / Sodium Chloride 0.103 MEQ/ML / Sodium Lactate 0.028 MEQ/ML Injectable Solution 1,000 mL, Rate: 125 ml/hr, Infuse over: 8 hr, Route: IV, Dosing Weight 104.545 kg, Total Volume: 1,000, Start date: 07/16/14 13:43:00, Duration: 30 day, Stop date: 08/15/14 13:42:00 Inactive 07/16/2014 [facility] D5W 1/2NS + KCL 20mEq/L 1000ml (Premix) 1,000 mL Notes: PREMIX IV - Do Not Alter No Longer Active 07/16/2014 [facility] Saline Flush 0.9% Notes: (Same as: BD Posiflush) No Longer Active 07/16/2014 [facility] Ondansetron Notes: (Same as: Jorge orourke) No Longer Active 07/16/2014 [facility] acetaminophen-codeine #3 Notes : Do not exceed 4gm/day of acetaminophen. (Same as: Tylenol with Codeine # 3) No Longer Active 07/16/2014 [facility] Acetaminophen 325 MG / Hydrocodone Rylan trate 10 MG Oral Tablet Notes: Do not exceed 4gm/day of acetamin ophen. (Same as: [place] 325/10) No Longer Active 07/16/2014 [facility] Hydromorphone 0.3 mg, 0.3 mL, Route: IVP, Drug form: INJ, Q3H, Dosing Weight 104.545, kg, PRN Pain Score 6-10, Start date: 07/16/14 13:28:00, Duration: 30 day, Stop date: 08/15/14 13:27:00 No Longer Active 07/16/2014 [facility] Acetaminophen 325 MG / Hydrocodone Rylan trate 5 MG Oral Tablet Notes: (Same as: [place] 325/5) Do not ex ceed 4gm/day of acetaminophen. No Longer Active 07/16/2014 [facility] Acetaminophen Notes: Max aceta minophen = 4000 mg/day (4 gm/day). (Same as: Tylenol) N o Longer Active 07/16/2014 [facility] Aluminum Hydroxide 40 MG/ML / Magnesium Hydroxide 40 MG/ML / Simethicone 4 MG/ML Oral Suspension Notes: (aluminum hydroxide-magnesium hyd-simethicone [phone]/5ml 30 ml ud ALLEN) No Longer Active 07/16/2014 [facility] Morphine Notes: (Same as:MORPh ine Sulfate) No Longer Active 07/16/2014 [facility] Diphenhydramine 25 mg, 1 tab, Route: PO, Drug form: TAB, Bedtime, Dosing Weight 104.545, kg, PRN Insomnia, Start date: 07/16/14 13:28:00, Duration: 30 day, Stop date: 08/15/14 13:27:00 No Longer Active 07/16/2014 [facility] Ciprofloxacin 2 MG/ML Injectable Solution 400 mg, Route: IVPB, ONCE, Dosing Weight 104.545, kg, Start date: 07/16/14 9:22:00, Stop date: 07/16/14 9:22:00 Inactive 07/16/2014 [facility] Rocephin 1 gm, Route: IVPB, Dr ug form: PDR/INJ, ONCE, Dosing Weight 104.545, kg, Start date: 07/16/14 9:19:00, Stop date: 07/16/14 9:19:00 Inactive 07/16/2014 [facility] Calcium Chloride 0.0014 MEQ/ML / Potassi um Chloride 0.004 MEQ/ML / Sodium Chloride 0.103 MEQ/ML / Sodium Lactate 0.028 MEQ/ML Injectable Solution 1,000 mL, Rate: 25 ml/hr, Infuse over: 4 0 hr, Route: IV, Dosing Weight 104.545 kg, Total Volume: 1,000, Start date: 07/16/14 8:14:00, Duration: 30 day, Stop date: 08/15/14 8:13:00 Inactive 07/16/2014 [facility] Enoxaparin 40 mg, Route: SUB-Q , Drug form: INJ, [id number], Dosing Weight 104.545, kg, Start date: 07/16/14 8:00:00, Duration: 30 day, Stop date: 08/14/14 8:00:00 Inactive 07/16/2014 [facility] Docusate Sodium 100 MG Oral Capsule [Colace] 100 mg = 1 cap, PO, BID, Constipation, # 20 cap, 0 Refill(s) Active 07/16/2014 [facility] Levofloxacin 250 MG Oral Tablet [Levaquin] 250 mg = 1 tab, PO, Q24H, # 14 tab, 0 Refill(s) Active 07/16/2014 [facility] tramadol hydrochloride 50 MG Oral Tablet [Ultram] 50 mg = 1 tab, PO, Q4H, pain, # 20 tab, 0 Refill(s) No Longer Active 07/16/2014 [facility] tramadol hydrochloride 50 MG Oral Tablet [Ultram] 50 mg = 1 tab, PO, Q4H, pain, # 20 tab, 0 Refill(s) Active 07/16/2014 [facility] Tamsulosin hydrochloride 0.4 MG Oral Capsule [Flomax] 0.4 mg = 1 cap, PO, Daily, # 30 cap, 0 Refill(s) Active 07/09/2014 [facility] simvastatin 40 mg oral tablet 40 mg = 1 tab, PO, Bedtime, # 30 tab, 0 Refill(s) Active 07/09/2014 [facility] amLODIPine 10 mg oral tablet 1 0 mg = 1 tab, PO, Daily, # 30 tab, 0 Refill(s) Active 07/09/2014 [facility] Amitriptyline 37 mg po nightly (Elavil), 0 Refill(s) Active 07/09/2014 [facility] meloxicam 15 mg oral tablet 15 mg = 1 tab, PO, Daily, # 30 tab, 0 Refill(s) Active 07/09/2014 [facility] Elavil 75 MG TABS (Active) Active [facility] Simvastatin TABS (Active) Active [facility] Flomax 0.4 MG Oral Capsule (A ctive) Active [facility] Mobic TABS (Active) Active [facility] Allergies, Adverse Reactions, Alerts Substance Category Reaction Severity Reaction type Status Date Reported Comments Source amoxicillin Assertion Drug allergy Active [facility] No Known Drug Allergies drug a llergy drug aller gy Active [facility] Immunizations Immunization Date Given Site Status Last Updated Comments Source pneumococcal 23-valent vaccine 08/16/2015 Left deltoid completed [facility] influenza virus vaccine, inactivated 08/16/2015 Right Deltoid completed Yael [facility] pneumococcal 23-valent vaccine 07/17[facility]2014 [facility] influenza virus vaccine, inactivated 07/17/2014 Not Given [facility] Zoster (Zostavax) 05/30/2012 completed [facility] Results Order Name Results Value Reference Range Date Interpretation Comments Source CHEM PANEL Glucose Lvl 81 65 - 99 02/20/2020 Result Comment:
Fasting reference interval

Lab test performed by:
[facility]
[address]
[place] [address]
Michael Leslie [facility] CHEM PANEL BUN 26 7 - 25 02/20/2020 [facility] CHEM PANEL Creatinine Lvl 1.21 0.70 - 1.18 02/20/2020 Result Comment: For patients >49 years o f age, the reference limit
for Creatinine is approximately 13% higher for people
identified as -Singaporean. [facility] CHEM PANEL eGFR NON-AFR. [place] 60 > OR = 60 mL/min/1.73m2 2019 [facility] CHEM PANEL eGFR 69 > OR = 60 mL/min/1.73m2 2019 [facility] CHEM PANEL B/C Ratio 21 6 - 22 02/20/2020 [facility] CHEM PANEL Sodium Lvl 141 135 - 146 02/20/2020 [facility] CHEM PANEL Potassium Lvl 5.0 3.5 - 5.3 02/20/2020 [facility] CHEM PANEL Chloride Lvl 107 98 - 110 02/20/2020 [facility] CHEM PANEL CO2 29 20 - 32 02/20/2020 [facility] CHEM PANEL Calcium Lvl 9.1 8.6 - 10.3 02/20/2020 Result Comment: FASTING:UNKNOWN
MULT IPLE TESTING PRIORITIES; ROUTINE TESTING TO FOLLOW.

FASTING: UNKNOWN [facility] SPECIAL CHEMISTRY PSA <0.1 < OR = 4.0 ng/mL 02/20/2020 Result Comment: The total PSA value from this assay system is
standardized against the WHO standard. The test
result will be approximately 20% lower when compared
to the equimolar-standardized total PSA (Denise
[place]). Comparison of serial PSA results should be
interpreted with this fact in mind.

This test was performed using the Siemens
chemiluminescent method. Values obtained from
different assay methods cannot be used
interchangeably. PSA levels, regardless of
value, should not be interpreted as absolute
evidence of the presence or absence of disease.
FASTING:UNKNOWN

FASTING: UNKNOWN

Lab test performed by:
[facility]
[address] [place] [address]
[place] [address]
Michael Leslie [facility] URINE AND STOOL UA Color DARK YELLOW YELLOW 02/20/2020 Result Comment:
Lab test perf ormed by:
[facility]
[address]
[place] [address]
Michael Leslie [facility] URINE AND STOOL UA Turbidity SLIGHTLY CLOUDY CLEAR 02/20/2020 [facility] URINE AND STOOL UA Spec Grav 1.025 1.001 - 1.035 02/20/2020 [facility] URINE AND STOOL UA pH 5.5 5.0 - 8.0 02/20/2020 [facility] URINE AND STOOL UA Glucose NEGATIVE NEGATIVE 02/20/2020 [facility] URINE AND STOOL UA Bili NEGATIVE NEGATIVE 02/20/2020 [facility] URINE AND STOOL UA Ketones NEGATIVE NEGATIVE 02/20/2020 [facility] URINE AND STOOL UA Blood 1+ NEGATIVE 02/20/2020 [facility] URINE AND STOOL UA Protein TRACE NEGATIVE 02/20/2020 [facility] URINE AND STOOL UA Nitrite NEGATIVE NEGATIVE 02/20/2020 [facility] URINE AND STOOL UA Leuk Est 2+ NEGATIVE 02/20/2020 [facility] URINE AND STOOL UA WBC > OR = 60 < OR = 5 02/20/2020 [facility] URINE AND STOOL UA RBC 3-10 < OR = 2 02/20/2020 [facility] URINE AND STOOL UA Sq Epi NONE SEEN < OR = 5 02/20/2020 [facility] URINE AND STOOL UA Bacteria FEW NONE SEEN 02/20/2020 [facility] URINE AND STOOL UA Hyal Cast NONE SEEN NONE SEEN 02/20/2020 [facility] URINE AND STOOL UA Comment 1 FEW MUCOUS THREADS 02/20/2020 [facility] CHEM PANEL Glucose Lvl 110 70 - 99 01/24/2020 [facility] CHEM PANEL BUN 27 7 - 22 01/24/2020 [facility] CHEM PANEL Creatinine Lvl 2.45 0.50 - 1.40 01/24/2020 [facility] CHEM PANEL Sodium Lvl 137 135 - 145 01/24/2020 [facility] CHEM PANEL Potassium Lvl 4.2 3.5 - 5.1 01/24/2020 [facility] CHEM PANEL Chloride Lvl 106 95 - 109 01/24/2020 [facility] CHEM PANEL CO2 26 24 - 32 01/24/2020 [facility] CHEM PANEL Calcium Lvl 8.8 8.5 - 10.5 01/24/2020 [facility] CHEM PANEL AGAP 9.2 10.0 - 20.0 01/24/2020 [facility] CHEM PANEL eGFR 26 01/24/2020 Result Comment: The eGFR is calculated using the CKD-EPI formula. In most young, healthy individuals the eGFR will be >90 mL/min/1.73m2. The eGFR declines with age. An eGFR of 60-89 may be normal in some populations, particularly the elderly, for whom the CKD-EPI formula has not been extensively validated. Use of the eGFR is not recommended in the following populations:

Individuals with unstable creatinine concentrations, including patients and those with serious co-morbid conditions.

Patients with extremes in muscle mass or diet.

The data above are obtained from the National Kidney Disease Education Program (NKDEP) which additionally recommends that when the eGFR is used in patients with extremes of body mass index for purposes of drug dosing, the eGFR should be multiplied by the estimated BMI. [facility] HEMATOLOGY Segs 82.7 45.0 - 75.0 01/24/2020 [facility] Lymphocytes 6.5 20.0 - 40.0 01/24/2020 [facility] Monocytes 10.0 2.0 - 12.0 01/24/2020 [facility] HEMATOLOGY Eosinophils 0.4 0.0 - 4.0 01/24/2020 [facility] Basophils 0.4 0.0 - 1.0 01/24/2020 [facility] Neutrophils # 9.1 1.5 - 8.1 01/24/2020 [facility] Lymphocytes # 0.7 1.0 - 5.5 01/24/2020 [facility] Monocytes # 1.1 0.0 - 0.8 01/24/2020 [facility] PT 26.0 12.0 - 14.7 01/24/2020 [facility] INR 2.33 0.85 - 1.17 01/24/2020 [facility] PTT 46.1 22.9 - 35.8 01/24/2020 [facility] WBC 11.0 3.7 - 10.4 01/24/2020 [facility] RBC 4.99 4.70 - 6.10 01/24/2020 [facility] Hgb 15.5 14.0 - 18.0 01/24/2020 [facility] Hct 45.7 42.0 - 54.0 01/24/2020 [facility] MCV 91.7 80.0 - 94.0 01/24/2020 [facility] MCH 31.0 27.0 - 31.0 01/24/2020 [facility] MCHC 33.8 32.0 - 36.0 01/24/2020 [facility] RDW 13.8 11.5 - 14.5 01/24/2020 [facility] Platelet 249 133 - 450 01/24/2020 [facility] HEMATOLOGY MPV 7.3 7.4 - 10.4 01/24/2020 [facility] CHEM PANEL Glucose Lvl 106 70 - 99 01/24/2020 [facility] CHEM PANEL BUN 30 7 - 22 01/24/2020 [facility] CHEM PANEL Creatinine Lvl 2.58 0.50 - 1.40 01/24/2020 [facility] CHEM PANEL Sodium Lvl 140 135 - 145 01/24/2020 [facility] CHEM PANEL Potassium Lvl 4.1 3.5 - 5.1 01/24/2020 [facility] CHEM PANEL Chloride Lvl 109 95 - 109 01/24/2020 [facility] CHEM PANEL CO2 29 24 - 32 01/24/2020 [facility] CHEM PANEL Calcium Lvl 8.4 8.5 - 10.5 01/24/2020 [facility] CHEM PANEL AGAP 6.1 10.0 - 20.0 01/24/2020 [facility] CHEM PANEL eGFR 24 01/24/2020 Result Comment: The eGFR is calculated using the CKD-EPI formula. In most young, healthy individuals the eGFR will be >90 mL/min/1.73m2. The eGFR declines with age. An eGFR of 60-89 may be normal in some populations, particularly the elderly, for whom the CKD-EPI formula has not been extensively validated. Use of the eGFR is not recommended in the following populations:

Individuals with unstable creatinine concentrations, including patients and those with serious co-morbid conditions.

Patients with extremes in muscle mass or diet.

The data above are obtained from the National Kidney Disease Education Program (NKDEP) which additionally recommends that when the eGFR is used in patients with extremes of body mass index for purposes of drug dosing, the eGFR should be multiplied by the estimated BMI. [facility] URINE AND STOOL UA Color Yellow *NA* (01/23/20 2:51 PM) Yellow 01/23/2020 [facility] URINE AND STOOL UA Turbidity Clear (01/23/20 2:51 PM) Clear 01/23/2020 [facility] URINE AND STOOL UA Spec Grav 1.021 <=1.030 01/23/2020 [facility] URINE AND STOOL UA pH 5.0 5.0 - 8.0 01/23/2020 [facility] URINE AND STOOL UA Protein 100 mg/dL Negative mg/dL 01/23/2020 [facility] URINE AND STOOL UA Glucose Negative mg/dL Negative mg/dL 01/23/2020 [facility] URINE AND STOOL UA Ketones Negative mg/dL Negative mg/dL 01/23/2020 [facility] URINE AND STOOL UA Bili Negative *NA* (01/23/20 2:51 PM) Negative 01/23/2020 [facility] URINE AND STOOL UA Blood Moderate *ABN* (01/23/20 2:51 PM) Negative 01/23/2020 [facility] URINE AND STOOL UA Nitrite Negative (01/23/20 2:51 PM) Negative 01/23/2020 [facility] URINE AND STOOL UA Leuk Est Negative (01/23/20 2:51 PM) Negative 01/23/2020 [facility] URINE AND STOOL UA Sq Epi Occasional /LPF Few /LPF 01/23/2020 [facility] URINE AND STOOL UA WBC <1 0 - 5 01/23/2020 [facility] URINE AND STOOL UA RBC 1 0 - 2 01/23/2020 [facility] URINE AND STOOL UA Urobilinogen <=1.0 mg/dL 0.1 - 1.0 01/23/2020 [facility] CHEM PANEL Glucose Lvl 139 70 - 99 01/23/2020 [facility] CHEM PANEL BUN 30 7 - 22 01/23/2020 [facility] CHEM PANEL Creatinine Lvl 2.86 0.50 - 1.40 01/23/2020 [facility] CHEM PANEL Sodium Lvl 140 135 - 145 01/23/2020 [facility]M PANEL Potassium Lvl 4.3 3.5 - 5.1 01/23/2020 [facility] CHEM PANEL Chloride Lvl 108 95 - 109 01/23/2020 [facility] CHEM PANEL CO2 26 24 - 32 01/23/2020 [facility] CHEM PANEL Calcium Lvl 9.0 8.5 - 10.5 01/23/2020 [facility] CHEM PANEL Total Protein 7.8 6.4 - 8.4 01/23/2020 [facility] CHEM PANEL Albumin Lvl 3.6 3.5 - 5.0 01/23/2020 [facility] CHEM PANEL ALT 28 0 - 65 01/23/2020 [facility] CHEM PANEL AST 13 0 - 37 01/23/2020 [facility] CHEM PANEL Alk Phos 77 39 - 136 01/23/2020 [facility] CHEM PANEL Bili Total 0.8 0.2 - 1.3 01/23/2020 [facility] CHEM PANEL AGAP 10.3 10.0 - 20.0 01/23/2020 [facility] CHEM PANEL B/C Ratio 10 6 - 25 01/23/2020 [facility] CHEM PANEL Globulin 4.2 2.7 - 4.2 01/23/2020 [facility] CHEM PANEL A/G Ratio 0.9 0.7 - 1.6 01/23/2020 [facility] CHEM PANEL eGFR 21 01/23/2020 Result Comment: The eGFR is calculated using the CKD-EPI formula. In most young, healthy individuals the eGFR will be >90 mL/min/1.73m2. The eGFR declines with age. An eGFR of 60-89 may be normal in some populations, particularly the elderly, for whom the CKD-EPI formula has not been extensively validated. Use of the eGFR is not recommended in the following populations:

Individuals with unstable creatinine concentrations, including patients and those with serious co-morbid conditions.

Patients with extremes in muscle mass or diet.

The data above are obtained from the National Kidney Disease Education Program (NKDEP) which additionally recommends that when the eGFR is used in patients with extremes of body mass index for purposes of drug dosing, the eGFR should be multiplied by the estimated BMI. [facility] WBC 10.6 3.7 - 10.4 01/23/2020 [facility] RBC 4.92 4.70 - 6.10 01/23/2020 [facility] Hgb 15.3 14.0 - 18.0 01/23/2020 [facility] Hct 45.2 42.0 - 54.0 01/23/2020 [facility] MCV 92.0 80.0 - 94.0 01/23/2020 [facility] MCH 31.1 27.0 - 31.0 01/23/2020 [facility] MCHC 33.8 32.0 - 36.0 01/23/2020 [facility] RDW 13.7 11.5 - 14.5 01/23/2020 [facility] Platelet 252 133 - 450 01/23/2020 [facility] MPV 7.2 7.4 - 10.4 01/23/2020 [facility] Segs 82.2 45.0 - 75.0 01/23/2020 [facility] Lymphocytes 7.6 20.0 - 40.0 01/23/2020 [facility] Monocytes 9.4 2.0 - 12.0 01/23/2020 [facility] Eosinophils 0.5 0.0 - 4.0 01/23/2020 [facility] HEMATOLOGY Basophils 0.3 0.0 - 1.0 01/23/2020 [facility] HEMATOLOGY Neutrophils # 8.7 1.5 - 8.1 01/23/2020 [facility] HEMATOLOGY Lymphocytes # 0.8 1.0 - 5.5 01/23/2020 [facility] HEMATOLOGY Monocytes # 1.0 0.0 - 0.8 01/23/2020 [facility] HEMATOLOGY Eosinophils # 0.1 0.0 - 0.5 01/23/2020 [facility] CARDIAC ENZYMES Troponin-I <0.02 0.00 - 0.40 08/16/2015 [facility] CARDIAC ENZYMES Total CK 84 12 - 191 08/16/2015 [facility] CARDIAC ENZYMES CK MB 0.7 0.5 - 3.6 08/16/2015 [facility] CARDIAC ENZYMES CK MB Index 0.8 0.0 - 2.5 08/16/2015 [facility] CARDIAC ENZYMES Total CK 91 12 - 191 08/16/2015 [facility] CARDIAC ENZYMES CK MB 1.0 0.5 - 3.6 08/16/2015 [facility] CARDIAC ENZYMES CK MB Index 1.1 0.0 - 2.5 08/16/2015 [facility] CARDIAC ENZYMES Troponin-I 0.02 0.00 - 0.40 08/16/2015 [facility] CHEM PANEL eGFR 70 08/16/2015 Result Comment: The eGFR is calculated using the CKD-EPI formula. In most young, healthy individuals the eGFR will be >90 mL/min/1.73m2. The eGFR declines with age. An eGFR of 60-89 may be normal in some populations, particularly the elderly, for whom the CKD-EPI formula has not been extensively validated. Use of the eGFR is not recommended in the following populations:

Individuals with unstable creatinine concentrations, including patients and those with serious co-morbid conditions.

Patients with extremes in muscle mass or diet.

The data above are obtained from the National Kidney Disease Education Program (NKDEP) which additionally recommends that when the eGFR is used in patients with extremes of body mass index for purposes of drug dosing, the eGFR should be multiplied by the estimated BMI. [facility] CHEM PANEL Glucose Lvl 96 70 - 99 08/16/2015 [facility] CHEM PANEL BUN 22 7 - 22 08/16/2015 [facility] CHEM PANEL Chloride Lvl 107 95 - 109 08/16/2015 [facility] CHEM PANEL Potassium Lvl 4.5 3.5 - 5.1 08/16/2015 [facility] CHEM PANEL CO2 29 24 - 32 08/16/2015 [facility] CHEM PANEL Calcium Lvl 8.9 8.5 - 10.5 08/16/2015 [facility] CHEM PANEL AGAP 8.5 10.0 - 20.0 08/16/2015 [facility] CHEM PANEL Sodium Lvl 140 135 - 145 08/16/2015 [facility] CHEM PANEL Creatinine Lvl 1.10 0.50 - 1.40 08/16/2015 [facility] HEMATOLOGY Basophils # 0.1 0.0 - 0.2 08/16/2015 [facility] HEMAT[facility] Lymphocytes # 2.6 1.0 - 5.5 08/16/2015 [facility] HEMATOLOGY Segs-Bands # 4.5 1.5 - 8.1 08/16/2015 [facility] HEMATOLOGY Eosinophils # 0.4 0.0 - 0.5 08/16/2015 [facility] HEMAT[facility] Monocytes # 0.8 0.0 - 0.8 08/16/2015 [facility] HEMATOLOGY Eosinophils 5.0 0.0 - 4.0 08/16/2015 [facility] HEMATOLOGY Monocytes 9.2 2.0 - 12.0 08/16/2015 [facility] HEMATOLOGY Lymphocytes 30.7 20.0 - 40.0 08/16/2015 [facility] HEMATOLOGY Segs 54.1 45.0 - 75.0 08/16/2015 [facility] HEMATOLOGY Basophils 1.0 0.0 - 1.0 08/16/2015 [facility] HEMATOLOGY Hgb 16.3 14.0 - 18.0 08/16/2015 [facility] HEMATOLOGY RBC 5.39 4.70 - 6.10 08/16/2015 [facility] HEMATOLOGY WBC 8.3 3.7 - 10.4 08/16/2015 [facility] HEMATOLOGY MCH 30.2 27.0 - 31.0 08/16/2015 [facility] HEMATOLOGY MCV 89.1 80.0 - 94.0 08/16/2015 [facility] HEMATOLOGY Hct 48.0 42.0 - 54.0 08/16/2015 [facility] HEMATOLOGY Platelet 259 133 - 450 08/16/2015 [facility] HEMATOLOGY RDW 13.2 11.5 - 14.5 08/16/2015 [facility] HEMATOLOGY MCHC 33.9 32.0 - 36.0 08/16/2015 [facility] HEMATOLOGY MPV 8.3 7.4 - 10.4 08/16/2015 [facility] CARDIAC ENZYMES CK MB 0.9 0.5 - 3.6 08/16/2015 [facility] CARDIAC ENZYMES Troponin-I 0.03 0.00 - 0.40 08/16/2015 [facility] CARDIAC ENZYMES Total CK 87 12 - 191 08/16/2015 [facility] CARDIAC ENZYMES CK MB Index 1.0 0.0 - 2.5 08/16/2015 [facility] CHEM PANEL eGFR 53 08/15/2015 Result Comment: The eGFR is calculated using the CKD-EPI formula. In most young, healthy individuals the eGFR will be >90 mL/min/1.73m2. The eGFR declines with age. An eGFR of 60-89 may be normal in some populations, particularly the elderly, for whom the CKD-EPI formula has not been extensively validated. Use of the eGFR is not recommended in the following populations:

Individuals with unstable creatinine concentrations, including patients and those with serious co-morbid conditions.

Patients with extremes in muscle mass or diet.

The data above are obtained from the National Kidney Disease Education Program (NKDEP) which additionally recommends that when the eGFR is used in patients with extremes of body mass index for purposes of drug dosing, the eGFR should be multiplied by the estimated BMI. [facility] CHEM PANEL AGAP 9.0 10.0 - 20.0 08/15/2015 [facility] CHEM PANEL Total Protein 7.9 6.4 - 8.4 08/15/2015 [facility] CHEM PANEL Albumin Lvl 3.9 3.5 - 5.0 08/15/2015 [facility] CHEM PANEL B/C Ratio 17 6 - 25 08/15/2015 [facility] CHEM PANEL Globulin 4.0 2.0 - 4.0 08/15/2015 [facility] CHEM PANEL A/G Ratio 1.0 0.7 - 1.6 08/15/2015 [facility] CHEM PANEL Alk Phos 63 39 - 136 08/15/2015 [facility] CHEM PANEL Bili Total 0.5 0.2 - 1.3 08/15/2015 [facility] CHEM PANEL ALT 36 0 - 65 08/15/2015 [facility] CHEM PANEL AST 16 0 - 37 08/15/2015 [facility] CHEM PANEL Sodium Lvl 138 135 - 145 08/15/2015 [facility] CHEM PANEL Potassium Lvl 4.0 3.5 - 5.1 08/15/2015 [facility] CHEM PANEL Chloride Lvl 106 95 - 109 08/15/2015 [facility] CHEM PANEL CO2 27 24 - 32 08/15/2015 [facility] CHEM PANEL Calcium Lvl 8.7 8.5 - 10.5 08/15/2015 [facility] CHEM PANEL Glucose Lvl 143 70 - 99 08/15/2015 [facility] CHEM PANEL BUN 23 7 - 22 08/15/2015 [facility] CHEM PANEL Creatinine Lvl 1.38 0.50 - 1.40 08/15/2015 [facility] HEMATOLOGY Eosinophils # 0.3 0.0 - 0.5 08/15/2015 [facility] HEMATOLOGY Basophils # 0.1 0.0 - 0.2 08/15/2015 [facility] HEMATOLOGY Segs 67.7 45.0 - 75.0 08/15/2015 [facility] HEMATOLOGY Basophils 0.7 0.0 - 1.0 08/15/2015 [facility] HEMATOLOGY Eosinophils 3.6 0.0 - 4.0 08/15/2015 [facility] HEMATOLOGY Segs-Bands # 6.0 1.5 - 8.1 08/15/2015 [facility] HEMATOLOGY Monocytes # 0.7 0.0 - 0.8 08/15/2015 [facility] HEMATOLOGY Lymphocytes # 1.8 1.0 - 5.5 08/15/2015 [facility] HEMAT[facility] Monocytes 8.3 2.0 - 12.0 08/15/2015 [facility] HEMATOLOGY Lymphocytes 19.7 20.0 - 40.0 08/15/2015 [facility] HEMATOLOGY Hgb 16.7 14.0 - 18.0 08/15/2015 [facility] HEMATOLOGY WBC 8.9 3.7 - 10.4 08/15/2015 [facility] HEMATOLOGY Hct 49.7 42.0 - 54.0 08/15/2015 [facility] HEMATOLOGY RBC 5.55 4.70 - 6.10 08/15/2015 [facility] HEMATOLOGY MCH 30.1 27.0 - 31.0 08/15/2015 [facility] HEMATOLOGY RDW 12.9 11.5 - 14.5 08/15/2015 [facility] HEMATOLOGY MCHC 33.6 32.0 - 36.0 08/15/2015 [facility] HEMATOLOGY MCV 89.6 80.0 - 94.0 08/15/2015 [facility] HEMATOLOGY MPV 7.9 7.4 - 10.4 08/15/2015 [facility] HEMATOLOGY Platelet 317 133 - 450 08/15/2015 [facility] CHEM PANEL Magnesium Lvl 2.0 1.8 - 2.4 07/17/2014 [facility] CHEM PANEL Calcium Lvl 8.6 8.5 - 10.5 07/17/2014 [facility] CHEM PANEL eGFR 63 07/17/2014 <sup>2</sup>Result Comment: The eGFR is calculated using the CKD-EPI formula. In most young, healthy individuals the eGFR will be >90 mL/min/1.73m2. The eGFR declines with age. An eGFR of 60-89 may be normal in some populations, particularly the elderly, for whom the CKD-EPI formula has not been extensively validated. Use of the eGFR is not recommended in the following populations:& lt;br/>
Individuals with unstable creatinine concentrations, including patients and those with serious co-morbid conditions.

Patients with extremes in muscle mass or diet.

The data above are obtained from the National Kidney Disease Education Program (NKDEP) which additionally recommends that when the eGFR is used in patients with extremes of body mass index for purposes of drug dosing, the eGFR should be multiplied by the estimated BMI. [facility] CHEM PANEL CO2 28 24 - 32 07/17/2014 [facility] CHEM PANEL Creatinine Lvl 1.2 0.5 - 1.4 07/17/2014 [facility] CHEM PANEL BUN 11 7 - 22 07/17/2014 [facility] CHEM PANEL Calcium Lvl 8.6 8.5 - 10.5 07/17/2014 [facility] CHEM PANEL Glucose Lvl 131 70 - 99 07/17/2014 <sup>5</sup>Interpretive Data: Adult ref erence range values reflect the clinical guidelines
of the [place] [employer]. [facility] CHEM PANEL Chloride Lvl 105 95 - 109 07/17/2014 [facility] CHEM PANEL Potassium Lvl 3.6 3.5 - 5.1 07/17/2014 [facility] CHEM PANEL Sodium Lvl 140 135 - 145 07/17/2014 [facility] CHEM PANEL AGAP 10.6 10.0 - 20.0 07/17/2014 [facility] HEMATOLOGY Monocytes # 1.0 0.0 - 0.8 07/17/2014 [facility] HEMATOLOGY Lymphocytes # 1.0 1.0 - 5.5 07/17/2014 [facility] HEMATOLOGY Segs-Bands # 6.2 1.5 - 8.1 07/17/2014 [facility] HEMATOLOGY Basophils 0.3 0.0 - 1.0 07/17/2014 [facility] Monocytes 12.5 2.0 - 12.0 07/17/2014 [facility] Eosinophils 0.4 0.0 - 4.0 07/17/2014 [facility] Lymphocytes 12.4 20.0 - 40.0 07/17/2014 [facility] Segs 74.4 45.0 - 75.0 07/17/2014 [facility] MCH 30.7 27.0 - 31.0 07/17/2014 [facility] MCHC 34.4 32.0 - 36.0 07/17/2014 [facility] MCV 89.4 80.0 - 94.0 07/17/2014 [facility] Hct 36.6 42.0 - 54.0 07/17/2014 [facility] Hgb 12.6 14.0 - 18.0 07/17/2014 [facility] WBC 8.4 3.7 - 10.4 07/17/2014 [facility] RBC 4.09 4.70 - 6.10 07/17/2014 [facility] Platelet 280 133 - 450 07/17/2014 [facility] MPV 7.6 7.4 - 10.4 07/17/2014 [facility] RDW 13.0 11.5 - 14.5 07/17/2014 [facility] CHEM PANEL Magnesium Lvl 1.8 1.8 - 2.4 07/16/2014 [facility] CHEM PANEL eGFR 48 07/16/2014 <sup>3</sup>Result Comment: The eGFR is calculated using the CKD-EPI formula. In most young, healthy individuals the eGFR will be >90 mL/min/1.73m2. The eGFR declines with age. An eGFR of 60-89 may be normal in some populations, particularly the elderly, for whom the CKD-EPI formula has not been extensively validated. Use of the eGFR is not recommended in the following populations:& lt;br/>
Individuals with unstable creatinine concentrations, including patients and those with serious co-morbid conditions.

Patients with extremes in muscle mass or diet.

The data above are obtained from the National Kidney Disease Education Program (NKDEP) which additionally recommends that when the eGFR is used in patients with extremes of body mass index for purposes of drug dosing, the eGFR should be multiplied by the estimated BMI. [facility] CHEM PANEL Sodium Lvl 140 135 - 145 07/16/2014 [facility] CHEM PANEL Creatinine Lvl 1.5 0.5 - 1.4 07/16/2014 [facility] CHEM PANEL BUN 19 7 - 22 07/16/2014 [facility] CHEM PANEL Potassium Lvl 4.1 3.5 - 5.1 07/16/2014 [facility] CHEM PANEL Glucose Lvl 144 70 - 99 07/16/2014 <sup>6</sup>Interpretive Data: Adult ref erence range values reflect the clinical guidelines
of the [place] [employer]. [facility] CHEM PANEL Chloride Lvl 110 95 - 109 07/16/2014 [facility] CHEM PANEL AGAP 9.1 10.0 - 20.0 07/16/2014 [facility] CHEM PANEL Calcium Lvl 7.7 8.5 - 10.5 07/16/2014 [facility] CHEM PANEL CO2 25 24 - 32 07/16/2014 [facility] HEMATOLOGY PTT 31.7 22.9 - 35.8 07/16/2014 <sup>10</sup>Interpretive Data: Heparin Therapeutic Range: 57 - 92 Seconds [facility] WBC 13.5 3.7 - 10.4 07/16/2014 [facility] MCV 89.7 80.0 - 94.0 07/16/2014 [facility] Hct 38.3 42.0 - 54.0 07/16/2014 [facility] MCH 30.9 27.0 - 31.0 07/16/2014 [facility] Hgb 13.2 14.0 - 18.0 07/16/2014 [facility] RBC 4.27 4.70 - 6.10 07/16/2014 [facility] RDW 12.9 11.5 - 14.5 07/16/2014 [facility] Platelet 311 133 - 450 07/16/2014 [facility] MCHC 34.4 32.0 - 36.0 07/16/2014 [facility] MPV 7.3 7.4 - 10.4 07/16/2014 [facility] BLOOD BANK RESULTS RBC product Product available 1 (07/09/14 11:23 AM) 07/09/2014 <sup>1</sup>Result Comment: 07/16/2014 03:46 [id number]
2 units pRBC. Non-autologous. MP. [facility] BLOOD BANK RESULTS ABO/Rh O POS 07/09/2014 [facility] BLOOD BANK RESULTS Antibody Scrn Negative (07/09/14 10:36 AM) 07/09/2014 [facility] ELECTROLYTES AGAP 9.1 10.0 - 20.0 07/09/2014 [facility] ELECTROLYTES eGFR 63 07/09/2014 <sup>4</sup>Result Comment: The eGFR is calculated using the CKD-EPI formula. In most young, healthy individuals the eGFR will be >90 mL/min/1.73m2. The eGFR declines with age. An eGFR of 60-89 may be normal in some populations, particularly the elderly, for whom the CKD-EPI formula has not been extensively validated. Use of the eGFR is not recommended in the following populations:& lt;br/>
Individuals with unstable creatinine concentrations, including patients and those with serious co-morbid conditions.

Patients with extremes in muscle mass or diet.

The data above are obtained from the National Kidney Disease Education Program (NKDEP) which additionally recommends that when the eGFR is used in patients with extremes of body mass index for purposes of drug dosing, the eGFR should be multiplied by the estimated BMI. [facility] ELECTROLYTES CO2 29 24 - 32 07/09/2014 [facility] ELECTROLYTES BUN 23 7 - 22 07/09/2014 [facility] ELECTROLYTES Creatinine Lvl 1.2 0.5 - 1.4 07/09/2014 [facility] ELECTROLYTES Glucose Lvl 97 70 - 99 07/09/2014 <sup>7</sup>Interpretive Data: Adult ref erence range values reflect the clinical guidelines
of the [place] [employer]. [facility] ELECTROLYTES Chloride Lvl 106 95 - 109 07/09/2014 [facility] ELECTROLYTES Potassium Lvl 4.1 3.5 - 5.1 07/09/2014 [facility] ELECTROLYTES Sodium Lvl 140 135 - 145 07/09/2014 [facility] HEMATOLOGY Basophils 1.2 0.0 - 1.0 07/09/2014 [facility] HEMATOLOGY Eosinophils 5.9 0.0 - 4.0 07/09/2014 [facility] HEMATOLOGY Lymphocytes 24.0 20.0 - 40.0 07/09/2014 [facility] HEMATOLOGY Monocytes 11.2 2.0 - 12.0 07/09/2014 [facility] HEMATOLOGY Segs 57.7 45.0 - 75.0 07/09/2014 [facility] Basophils # 0.1 0.0 - 0.2 07/09/2014 [facility] HEMATOLOGY Eosinophils # 0.3 0.0 - 0.5 07/09/2014 [facility] Monocytes # 0.6 0.0 - 0.8 07/09/2014 [facility] Lymphocytes # 1.2 1.0 - 5.5 07/09/2014 [facility] Segs-Bands # 3.0 1.5 - 8.1 07/09/2014 [facility] INR 0.99 0.85 - 1.17 07/09/2014 <sup>9</sup>Interpretive Data: RECOMMEND ED RANGES FOR PROTIME INR:
2.0-3.0 for most medical and surgical thromboembolic states.
2.5-3.5 for artificial heart valves and recurrent embolism.

INR SHOULD BE USED ONLY FOR PATIENTS ON STABLE ANTICOAGULANT THERAPY. [facility] PT 13.1 12.0 - 14.7 07/09/2014 [facility] PTT 35.2 22.9 - 35.8 07/09/2014 <sup>11</sup>Interpretive Data: Heparin Therapeutic Range: 57 - 92 Seconds [facility] RDW 12.9 11.5 - 14.5 07/09/2014 [facility] Platelet 257 133 - 450 07/09/2014 [facility] MCH 31.6 27.0 - 31.0 07/09/2014 [facility] MCHC 34.9 32.0 - 36.0 07/09/2014 [facility] MPV 7.7 7.4 - 10.4 07/09/2014 [facility] Hgb 12.9 14.0 - 18.0 07/09/2014 [facility] Hct 37.1 42.0 - 54.0 07/09/2014 [facility] WBC 5.1 3.7 - 10.4 07/09/2014 [facility] RBC 4.10 4.70 - 6.10 07/09/2014 [facility] MCV 90.5 80.0 - 94.0 07/09/2014 [facility] SPECIAL CHEMISTRY PSA 2.95 0.00 - 4.00 07/09/2014 <sup>8</sup>Interpretive Data: 0-4 ng/ml is clinically accepted reference range from the
[place] [employer] in 1997 for Total PSA.

A PSA value in the range of 0.1 to 0.6 ng/mL is indeterminate
if being used as an indicator of recurrent or residual disease. [facility] URINE AND STOOL UA Urobilinogen <=1.0 mg/dL 0.1 - 1.0 07/09/2014 [facility] URINE AND STOOL UA Sq Epi None Seen 07/09/2014 [facility] URINE AND STOOL UA Blood Negative (07/09/14 10:36 AM) Negative 07/09/2014 [facility] URINE AND STOOL UA WBC 1 0 - 5 07/09/2014 [facility] URINE AND STOOL UA Leuk Est Negative (07/09/14 10:36 AM) Negative 07/09/2014 [facility] URINE AND STOOL UA Nitrite Negative (07/09/14 10:36 AM) Negative 07/09/2014 [facility] URINE AND STOOL UA Bili Negative *NA* (07/09/14 10:36 AM) Negative 07/09/2014 [facility] URINE AND STOOL UA Ketones Negative mg/dL Negative mg/dL 07/09/2014 [facility] URINE AND STOOL UA Mucus Few /LPF None Seen /LPF 07/09/2014 [facility] URINE AND STOOL UA RBC 1 0 - 2 07/09/2014 [facility] URINE AND STOOL UA Spec Grav 1.019 <=1.030 07/09/2014 [facility] URINE AND STOOL UA Turbidity Clear (07/09/14 10:36 AM) Clear 07/09/2014 [facility] URINE AND STOOL UA Color Yellow *NA* (07/09/14 10:36 AM) Yellow 07/09/2014 [facility] URINE AND STOOL UA Glucose Negative mg/dL Negative mg/dL 07/09/2014 [facility] URINE AND STOOL UA Protein Negative mg/dL Negative mg/dL 07/09/2014 [facility] URINE AND STOOL UA pH 5.0 5.0 - 8.0 07/09/2014 [facility] Pathology Reports No Data Provided for This Section Diagnostic Reports Report Value Date Source Retroperitoneal Complete US [place] OCEDURE INFORMATION: Exam: US Retroperitoneal; Complete; Kidneys and Bladder Exam date and time: 03/18/2020 2:20 PM Age: 69 years old Clinical indication: Other: Kidney stones; Additional info: /? Solid vs cystic mass TECHNIQUE: Imaging protocol: Real-time ultrasound of the retroperitoneum with image documentation. Complete exam focused on the kidneys and bladder. COMPARISON: ABDOMEN/PELVIS WO IV CONTRAST CT 02/28/2020 11:46 AM FINDINGS: KIDNEYS: The right kidney measures 10.4 x 5.6 x 4.4 cm. The left kidney measures 12.5 x 5.9 x 4.5 cm. There is a 2.6 x 2.4 x 2.3 cm simple cyst right upper kidney. There is a 5.5 x 5.3 x 5.3 cm simple cyst off the inferio r right kidney. There is a 2.5 x 2.5 cm simple cyst right mid kidney. There is a 2.7 x 2.7 x 3.2 cm simple cyst left upper to mid kidney. No pelvocaliectasis, nephrolithiasis or other renal mass lesion bilaterally. BLADDER: Bladder is not well distended but sonographically unremarkable. ABDOMINAL AORTA, COMMON ILIACS ARTERIES BILATERALLY AND INFERIOR VENA CAVA: Visualized portions appear unremarkable. Common iliac arteries bilaterally not well evaluated due to overlying bowel gas. ASCITES: No ascites noted. IMPRESSION: 1. Bilateral simple renal cysts as above . 2. Otherwise unremarkable renal ultrasou nd. Good Rivas MD On 03/18/2020 15:54:37; [id number] 03/18/2020 [facility] Abdomen AP DX PROCEDURE INFORM ATION: Exam: XR Abdomen, 1 View Exam date and time: 03/18/2020 1:33 PM Age: 69 years old Clinical indication: Malignant neoplasm of prostate; Calculus of kidney; Other specified disorders of kidney and ureter; Additional info: /? Solid vs cystic mass TECHNIQUE: Imaging protocol: KUB. Views: Frontal supine view of the abdomen. 1 View. COMPARISON: ABDOMEN/PELVIS WO IV CONTRAST CT 02/28/2020 11:46 AM IMPRESSION: A couple of 2 mm calyceal stones over the right kidney are seen, corresponding to small calculi seen on the previous CT. There is no other visible urinary tract calculus. The abdominal gas pattern is within normal limits. Mild degenerative changes in the lumbar spine are noted. There are no lytic or blastic osseous lesions. Allan Juarez MD On 03/18/2020 14:52:11; [id number] 03/18/2020 [facility] Abdomen/Pelvis wo IV contrast CT Radiation Dose CTDIVOL = 0 (mGy): DLP = 1328 (mGy-cm) PROCEDURE INFORMATION: Exam: CT Abdomen And Pelvis Without Contrast Exam date and time: 02/28/2020 11:46 AM Age: 69 years old Clinical indication: /2 mm left uvj stone/ hydro and renal insuff HX robotic prostatectomy TECHNIQUE: Imaging protocol: Computed tomography of the abdomen and pelvis without contrast. Radiation optimization: All CT scans at this facility use at least one of these dose optimization techniques: automated exposure control; mA and/or kV adjustment per patient size (includes targeted exams where dose is matched to clinical indication); or iterative reconstruction. COMPARISON: ABDOMEN/PELVIS WO IV CONTRAST CT 01/23/2020 7:21 PM RADIATION DOSE METRICS: Total DLP (mGy-cm): 1328 FINDINGS: Lungs: Clear lung bases. Liver: Unenhanced liver grossly normal. Gallbladder and bile ducts: Gallbladder and common duct normal. Pancreas: Pancreas normal. Spleen: Spleen normal. Small accessory spleen. Adrenals: Adrenals normal. Kidneys and ureters: Resolution of distal left ureteral calculus and left hydronephrosis. Three tiny right renal calculi, largest 3 mm. Bilateral simple renal cortical cysts, largest right lower pole 5.8 cm, not requiring further imaging. Nonspecific perinephric stranding. Stomach and bowel: No intestinal lesion or mesenteric inflammatory change. Appendix: Appendix not visualized. Intraperitoneal space: No ascites. Vasculature: Moderate atherosclerosis. Lymph nodes: No adenopathy. Bladder: Small volume thick-walled urinary bladder contains a 2 mm calculus. Reproductive: Absent prostate. Bones/joints: Moderate spondylosis, degenerative disc disease lumbosacral junction. Soft tissues: Tiny fat containing umbilical hernia. IMPRESSION: 1. 2 mm calculus now located within the urinary bladder. 2. Small volume thick-walled bladder pos t prostatectomy. 3. Three tiny right renal calculi. 4. Atherosclerosis and spondylosis. 5. Stable renal cortical cysts. COMMENTS: Consistent with the [place]'s Incidental Findings Committee white paper (J Am Carlos Eduardo Radiol 2018): Any incidental renal lesion less than 1 cm or classified as too small to characterize, or any incidental cystic renal lesion characterized as simple-appearing, is likely benign. No follow-up imaging is recommended for these lesions per consensus recommendations based on imaging criteria. Anthony Wright MD On 02/29/2020 18:53:03; [id number] 02/28/2020 [facility] Abdomen/Pelvis wo IV contrast CT Radiation Dose CTDIVOL = 0 (mGy): DLP = 976.92 (mGy-cm) PROCEDURE INFORMATION: Exam: CT Abdomen And Pelvis Without Contrast Exam date and time: 01/23/2020 7:21 PM Age: 69 years old Clinical indication: Pain; Additional info: /abdominal pain, acute, contipation , lower abdominal pain TECHNIQUE: Imaging protocol: Computed tomography of the abdomen and pelvis without contrast. Radiation optimization: All CT scans at this facility use at least one of these dose optimization techniques: automated exposure control; mA and/or kV adjustment per patient size (includes targeted exams where dose is matched to clinical indication); or iterative reconstruction. COMPARISON: RENAL STONE CT 09/27/2017 9:23 AM RADIATION DOSE METRICS: Total DLP (mGy-cm): 976.92 FINDINGS: Liver: Normal. No mass. Gallbladder and bile ducts: Normal. No calcified stones. No ductal dilation. Pancreas: Normal. No ductal dilation. Spleen: Normal. No splenomegaly. Adrenals: Normal. No mass. Kidneys and ureters: Punctate obstructing 2 mm stone adjacent to the left ureterovesical junction on series 2 image 113. Prominent stranding surrounding the left ureter and left kidney is noted, with mild left hydronephrosis. Bilateral renal cysts are redemonstrated, measuring up to 5.7 cm. Nonobstructing calyceal stones are noted in the right kidney. Stomach and bowel: Moderate stool burden is noted within the proximal colon. The small bowel demonstrates a normal course and caliber. Appendix: No evidence of appendicitis. Intraperitoneal space: Unremarkable. No free air. No significant fluid collection. Vasculature: Atherosclerotic calcification of the aorta without aneurysmal dilatation. Lymph nodes: Unremarkable. No enlarged lymph nodes. Bladder: Unremarkable as visualized. Reproductive: The prostate gland is not visualized. Bones/joints: Degenerative changes of the lumbar spine most pronounced at L5-S1. Soft tissues: Unremarkable. IMPRESSION: 1. Obstructing 2 mm stone adjacent to th e left ureterovesical junction, with mild left hydronephrosis and prominent stranding surrounding the left ureter and kidney. 2. Punctate nonobstructing calyceal ston es in the right kidney. 3. Bilateral renal cysts measuring up to 5.7 cm. 4. Moderate stool burden in the proximal colon suggesting constipation. Good Castro MD On 01/23/2020 20:04:22; [id number] 01/23/2020 [facility] Spine lumbar wo contrast MRI E XAM: MR LUMBAR SPINE WITHOUT CONTRAST CLINICAL INDICATION: 67 years year-old Male with lumbar radiculopathy COMPARISON: CT renal stone 09/27/2017 TECHNIQUE: Multiplanar T1, T2, STIR weighted MRI of the lumbar spine is performed. CONTRAST: None FINDINGS: Five, nonrib-bearing lumbar vertebral bodies are present. ALIGNMENT AND GENERAL ASSESSMENT: There is approximately 5 mm of retrolisthesis of L5 on S1. Small Schmorl's node along the inferior endplate of L2. The bone marrow is normal for the patient's age. There is no fracture or compression deformity. The anterior and posterior paraspinal soft tissues are normal. The conus medullaris ends at the L1-2 level and demonstrates normal signal. DISC SPACES: T12-L1: Unremarkable. L1-L2: Minimal broad-based disc bulge without significant narrowing of the thecal sac. Mild facet degeneration. L2-L3: Disc desiccation. Mild facet degeneration. L3-L4: Minimal facet degeneration. L4-L5: Mild disc desiccation. Broad-based disc bulge with annular fissure. Thickening of the ligamentum flavum. Mild facet degeneration. Narrowing of the lateral recesses. Thecal sac is mildly narrowed to 9 mm AP. Mild bilateral neuroforaminal stenosis. L5-S1: Mild disc desiccation and height loss. Mild posterior disc protrusion without significant narrowing of the thecal sac. Mild facet degeneration. Moderate bilateral neuroforaminal stenosis. OTHER: Multiple bilateral renal cysts noted. Atherosclerotic plaque in the aorta. IMPRESSION: 1. Degenerative changes of the lumbar sp ine as described above, worst at L4-5 and L5-S1. SL: [id number] 01/10/2018 [facility] [address]al Stone CT Patient Name: Deepak LOOMSI : 1950; Age: 66 years y/o Male MR: [id number] Study: Renal Stone CT 09/27/2017 9:20 AM CDT Ordering Physician: Matthew Yung MD Clinical Indication: - R10.9 Unspecified abdominal pain; Comparison: None TECHNIQUE: Noncontrasted helical imaging was performed from the kidneys through the symphysis as a renal stone protocol. Multiplanar reformations are available. CT Radiation Dose: DLP = 736 mGy-cm FINDINGS: This examination is limited for the evaluation of solid organs and vascular structures due to withheld intravenous contrast -- the standard for urinary calculus assessment CT. KIDNEYS: 2 or 3 punctate 1 to 2 mm nonobstructive calculi are present within the right kidney. 2 mm nonobstructive calculus is present within the left renal lower pole as well. No obstructing urinary tract calculi are otherwise demonstrated. There are numerous water density cysts bilaterally, largest in the right renal lower pole measuring 5.5 cm. No obvious solid renal mass appreciated. LOWER CHEST: The limited visualized lung bases are clear. SOLID ORGANS: The visualized liver, spleen, pancreas, and adrenal glands are normal. BOWEL: No acute bowel pathology. PERITONEUM: No free intraperitoneal fluid or air. RETROPERITONEUM: No adenopathy. Aorta is normal. PELVIS: No pelvic mass. The urinary bladder is normal. Suspect previous prostatectomy. No additional pelvic mass or adenopathy. MUSCULOSKELETAL: The skeleton is intact. Mild degenerative spondylosis at L5-S1. IMPRESSION: Several bilateral punctate nonobstructive nephrolithiasis. Numerous bilateral renal cysts, largest up to 5.5 cm within the right renal lower pole. No other significant urinary tract pathology appreciated by noncontrast exam. No other specific acute findings are demonstrated. SL: [id number] 09/27/2017 [facility] Spine cervical w/wo contrast MRI MRI CERVICAL SPINE WITH AND WITHOUT CONTRAST INDICATION: Posttraumatic cervical spine pain, evaluate C4 vertebral body fracture COMPARISON: CT cervical spine 08/17/2015 DISCUSSION: Alignment: There is grade 1 anterolisthesis at C3-C4. Craniocervical junction: There is mild arthrosis at the craniovertebral junction. The foramen magnum is patent. Vertebral bodies: There is no marrow edema associated with the nondisplaced fracture at the anterior corner of the inferior endplate of C4; however, there is trace prevertebral edema at the C4 and C5 level. There are degenerative endplate changes throughout the cervical spine. The vertebral bodies are otherwise normal in height and signal. Spinal cord: Normal in signal and morphology, from the cervicomedullary junction through T2-T3. Paraspinal soft tissues: As described above, there is trace prevertebral edema at the C4 and C5 levels. The anterior longitudinal ligament appears intact and normal in signal. No ligamentous injuries are identified. Disc spaces, spinal canal and foramina: C2-C3: The disc is normal in height and signal. Buckling of the ligamentum flavum results in mild narrowing of the spinal canal. There is no significant arthrosis. The foramina are patent. C3-C4: There is grade 1 anterolisthesis. There is annular fissure of the disc. Disc height is maintained. Posterior disc osteophyte complex results in [id number] spinal canal stenosis, with flattening of the right ventral cord. Arthrosis contributes to severe right foraminal stenosis. The left foramen is patent. C4-C5: The disc is normal in height and signal. Posterior disc osteophyte complex results in mild spinal canal stenosis, with flattening of the ventral cord. There is bilateral facet arthrosis. The foramina are patent. C5-C6: Disc height is maintained. Posterior disc osteophyte complex results in mild spinal canal stenosis, with flattening of the ventral cord. Arthrosis results in moderate right foraminal stenosis and severe left foraminal stenosis. C6-C7: There is mild loss of disc height. Posterior disc osteophyte complex results in anterior thecal effacement, without spinal canal stenosis. Bilateral uncovertebral and facet arthrosis contribute to severe bilateral foraminal stenosis. C7-T1: There is annular fissure of the disc. Disc height is maintained. There is no significant arthrosis. The spinal canal and foramina are patent. IMPRESSION: 1. Given the lack of bone marrow edema a nd corticated appearance in the preceding CT, the nondisplaced fracture at the anterior corner of the inferior endplate of C4 is probably subacute to chronic or chronic. Trace prevertebral edema at the C4 and C5 level may be related to the fracture or may potentially be secondary to mild sprain of the anterior longitudinal ligament. The ALL itself, appears intact and normal in signal. No ligamentous injuries are identified. 2. Spondylosis results in varying degree s of spinal canal and foraminal stenosis, as described. Spinal canal stenosis is mild to moderate at worst, at C3-C4. Foraminal stenosis is most severe, bilaterally, at 67. 3. Annular fissure of the C3-C4 and C6-C 7 discs. 4. Grade 1 anterolisthesis at C4-C5. SL:16 08/18/2015 [facility] Spine cervical wo contrast CT CT CERVICAL SPINE WITHOUT CONTRAST INDICATION: Posttraumatic cervical spine pain COMPARISON: None DISCUSSION: There is a nondisplaced fracture at the anterior corner of the inferior endplate of C4. The fracture fragments appear somewhat corticated and there is no prevertebral soft tissue swelling. No additional cervical spine fractures are identified. There is grade 1 anterolisthesis at C3-C4. Vertebral body alignment is otherwise within normal limits. There is moderate cervical spondylosis, with greatest disc space narrowing at C6-C7. Arthrosis results in moderate or severe foraminal stenosis on the right side at its C3-C4 and on the right side at C6- C7. Grossly, there is no appreciably significant spinal canal stenosis. The soft tissues are grossly unremarkable. Ligament, spinal cord, and/or vascular abnormalities cannot be excluded on the basis of this examination. IMPRESSION: 1. A nondisplaced fracture at the anteri or corner of the inferior endplate of C4. This fracture may be potentially chronic, as the fracture fragments appear somewhat corticated and there is no associated prevertebral edema. If clinically indicated, consider magnetic resonance imaging of the cervical spine to assess for bone marrow edema. Otherwise, no acute cervical spine abnormalities are visualized. 2. Cervical spondylosis, associated with grade 1 spondylolisthesis at C3-C4. SL:16 08/17/2015 [facility] Ribs unilateral DX Clinical hi story: Chest pain post trauma Bilateral rib series 3 views each. Comparison: chest radiograph same date Chronic fracture deformities of the posterolateral left 6th and 7th ribs. There is no acute rib fracture currently appreciated. No obvious pulmonary infiltrate. No pleural effusion or pneumothorax is appreciated. Chronic degenerative changes in the dorsal spine are evident. IMPRESSION: No acute finding. 08/17/2015 [facility] Chest 2 views DX CHEST RADIOGR [facility] 2 VIEWS INDICATION: Posttraumatic chest pain COMPARISON: Chest radiograph 08/15/2015 DISCUSSION: The cardiomediastinal silhouette and pulmonary vasculature are within normal limits. No consolidation, pleural effusion, or pneumothorax are visible. No suspicious pulmonary nodules are identified. No acute bony abnormalities are seen. IMPRESSION: No acute intrathoracic abnormalities are visualized. SL:16 08/17/2015 [facility] Brain wo contrast CT Brain wo contrast CT CLINICAL HISTORY: Headache with Trauma; COMPARISON: None TECHNIQUE: Contiguous transaxial images of the brain were performed without administration of IV contrast. Reformations were performed in sagittal and coronal projections. FINDINGS: BRAIN PARENCHYMA: There is no evidence for space-occupying lesions, mass effect or vasogenic edema. No evidence for parenchymal bleed, extra-axial collections or midline shift.. No acute infarct is noted. Cerebral volume is within normal limits. No ventriculomegaly. The basilar cisterns are normal. Cerebellum demonstrates normal morphology and volume. CALVARIUM AND SKULL BASE: No displaced bony fractures or other significant bony abnormality is visualized. BRAINSTEM, SELLA AND ORBITS: No evidence for Chiari malformation. No space- occupying lesion is visualized in the sella. Visualized portion of the orbits are unremarkable. MASTOIDS AND PARANASAL SINUSES: The visualized paranasal sinuses are clear. Mastoid air cells are clear bilaterally. IMPRESSION: No acute brain abnormality is noted. SL: [id number] 08/17/2015 [facility] Chest 1view DX Study: Chest 1v iew DX Clinical Indication: Dizziness Comparison: 07/09/2014 FINDINGS: The cardiac silhouette is normal in size. The lungs are clear and without consolidation or congestion. No pleural effusion or pneumothorax is seen. The osseous structures are unremarkable. IMPRESSION: No acute cardiopulmonary disease. SL: [id number] 08/15/2015 [facility] Cystogram DX PROCEDURE: Bladd er cystogram CLINICAL INFORMATION 185 prostate cancer; s/p robotic prostatectomy COMPARISON: None. The bladder was filled to capacity with 225 cc water-soluble contrast. The bladder is intact. No evidence for extravasation. No reflux of contrast. Post void images demonstrates near complete emptying of the bladder. IMPRESSION: Normal cystogram. Fluoro time 31 seconds SL: 13 07/30/2014 [facility] Consultation Notes No Data Provided for This Section Discharge Summaries No Data Provided for This Section History and Physicals No Data Provided for This Section Vital Signs Vital Sign Value Date Comments Source Height 193.04 cm 03/25/2020 [facility] Weight 104.091 03/25/2020 [facility] BMI Calculated 27.93 03/25/2020 [facility] Height 193.04 cm 03/04/2020 [facility] Weight 104.091 03/04/2020 [facility] BMI Calculated 27.93 03/04/2020 [facility] Height 190.5 cm 02/20/2020 [facility] Weight 105.909 02/20/2020 [facility] BMI Calculated 29.18 02/20/2020 [facility] Temperature Oral (F) 98.3 F 01/24/2020 [facility] Heart Rate 106 01/24/2020 [facility] Systolic (mm Hg) 142 01/24/2020 [facility] Diastolic (mm Hg) 79 01/24/2020 [facility] Temperature Oral (F) 98.0 F 01/24/2020 [facility] Heart Rate 113 01/24/2020 [facility] Respitory Rate 17 01/24/2020 [facility] Systolic (mm Hg) 162 01/24/2020 [facility] Diastolic (mm Hg) 103 01/24/2020 [facility] Temperature Oral (F) 98.2 F 01/24/2020 [facility] Respitory Rate 16 01/24/2020 [facility] Heart Rate 97 01/24/2020 [facility] Systolic (mm Hg) 152 01/24/2020 [facility] Diastolic (mm Hg) 81 01/24/2020 [facility] Respitory Rate 16 01/24/2020 [facility] Height 190.5 cm 01/24/2020 [facility] Weight 102.727 01/24/2020 [facility] BMI Calculated 28.31 01/24/2020 [facility] Height 190.5 cm 01/23/2020 [facility] BMI Calculated 28.31 01/23/2020 [facility] Weight 102.727 01/23/2020 [facility] Weight 102.273 01/02/2019 [facility] Height 193.04 cm 06/06/2018 [facility] BMI Calculated 27.45 06/06/2018 [facility] Weight 102.273 06/06/2018 [facility] Heart Rate 73 06/06/2018 [facility] Systolic (mm Hg) 133 06/06/2018 [facility] Diastolic (mm Hg) 76 06/06/2018 [facility] Weight 100 04/13/2018 [facility] BMI Calculated 26.84 04/13/2018 [facility] Height 193.04 cm 04/13/2018 [facility] Temperature Oral (F) 98.2 F 04/13/2018 [facility] Heart Rate 62 04/13/2018 [facility] Systolic (mm Hg) 117 04/13/2018 [facility] Diastolic (mm Hg) 69 04/13/2018 [facility] Weight 113.636 03/08/2018 [facility] Systolic (mm Hg) 127 03/08/2018 [facility] Diastolic (mm Hg) 76 03/08/2018 [facility] Heart Rate 61 03/08/2018 [facility] Weight 102.045 02/02/2018 [facility] BMI Calculated 27.38 02/02/2018 [facility] Height 193.04 cm 02/02/2018 [facility] Temperature Oral (F) 98.1 F 02/02/2018 [facility] Heart Rate 65 02/02/2018 [facility] Systolic (mm Hg) 114 02/02/2018 [facility] Diastolic (mm Hg) 70 02/02/2018 [facility] BMI Calculated 27.74 01/04/2018 [facility] Weight 103.381 01/04/2018 [facility] Height 193.04 cm 01/04/2018 [facility] Temperature Oral (F) 98.0 F 01/04/2018 [facility] Systolic (mm Hg) 124 01/04/2018 [facility] Diastolic (mm Hg) 74 01/04/2018 [facility] Systolic (mm Hg) 142 08/19/2015 [facility] Diastolic (mm Hg) 82 08/19/2015 [facility] Respitory Rate 18 08/19/2015 [facility] Heart Rate 70 08/19/2015 [facility] Temperature Oral (F) 97.6 F 08/19/2015 [facility] Systolic (mm Hg) 133 08/19/2015 [facility] Diastolic (mm Hg) 73 08/19/2015 [facility] Respitory Rate 18 08/19/2015 [facility] Temperature Oral (F) 97.8 F 08/19/2015 [facility] Heart Rate 67 08/19/2015 [facility] Systolic (mm Hg) 121 08/19/2015 [facility] Diastolic (mm Hg) 70 08/19/2015 [facility] Temperature Oral (F) 98.3 F 08/19/2015 [facility] Heart Rate 62 08/19/2015 [facility] Respitory Rate 18 08/19/2015 [facility] Weight 99 0 08/17/2015 [facility] BMI Calculated 24.84 08/16/2015 [facility] Weight 100 08/16/2015 [facility] Height 200.66 cm 08/16/2015 [facility] Weight 100 08/15/2015 [facility] Temperature Oral (F) 98.0 F 07/18/2014 [facility] Systolic (mm Hg) 138 07/18/2014 [facility] Heart Rate 68 07/18/2014 [facility] Diastolic (mm Hg) 82 07/18/2014 [facility] Systolic (mm Hg) 130 07/18/2014 [facility] Temperature Oral (F) 98.3 F 07/18/2014 [facility] Diastolic (mm Hg) 74 07/18/2014 [facility] Respitory Rate 16 07/18/2014 [facility] Respitory Rate 18 07/18/2014 [facility] Systolic (mm Hg) 137 07/18/2014 [facility] Heart Rate 62 07/18/2014 [facility] Diastolic (mm Hg) 71 07/18/2014 [facility] Temperature Oral (F) 98.3 F 07/18/2014 [facility] Heart Rate 81 07/18/2014 [facility] Respitory Rate 18 07/18/2014 [facility] Height 193.04 cm 07/09/2014 [facility] Weight 104.545 07/09/2014 [facility] BMI Calculated 28.05 07/09/2014 [facility] Encounters Location Location Details Encounter Type Encounter Number Reason For Visit Attending Provider ADM Date DC Date Status Source AUDIT [id number] 08/08/2013 08/08/2013 [facility] Inpatient [id number] Matthew Yung 07/16/2014 07/18/2014 [facility] Outpatient [id number] Matthew Aga 07/30/2014 07/31/2014 [facility] Inpatient [id number] Luigi Pacheco 08/15/2015 08/19/2015 [facility] Outpatient [id number] Sweta Still 09/24/2015 09/24/2015 [facility] Outpatient [id number] Matthew Yung 09/27/2017 09/28/2017 [facility] TM Phone Message [id number] 12/29/2017 12/31/2017 [facility] Outpatient [id number] CANDACE BUYS 01/04/2018 Active [facility] Outpatient [id number] Sourav Vega 01/04/2018 01/05/2018 [facility] Outpatient [id number] Candace Buys 01/11/2018 01/11/2018 [facility] Outpatient [id number] SOURAV VEGA 01/19/2018 Active [facility] Pre-Reg [id number] Sourav Vega 01/19/2018 01/19/2018 [facility] Outpatient [id number] IAN PRAKASH 02/02/2018 Active [facility] Outpatient [id number] Sadi Rockwell 02/02/2018 02/03/2018 [facility] Phone Message [id number] 02/02/2018 02/04/2018 [facility] Outpatient [id number] IAN PRAKASH 02/22/2018 [facility] [place] [id number] Sadi Rockwell 02/22/2018 02/23/2018 [facility] Outpatient [id number] IAN PRAKASH 03/08/2018 Active [facility] [place] [id number] Sadi Rockwell 03/08/2018 03/09/2018 [facility] Outpatient [id number] IAN PRAKASH 03/22/2018 Active [facility] [place] [id number] Sourav Vega 03/22/2018 03/23/2018 [facility] TM Phone Message [id number] 03/23/2018 03/25/2018 [facility] Outpatient [id number] IAN PRAKASH 04/13/2018 [facility] [place] [id number] Sourav Vega 04/13/2018 04/14/2018 [facility] TM Phone Message [id number] 04/13/2018 04/15/2018 [facility] Outpatient [id number] MATTHEW AGA 06/06/2018 Active [facility] Outpatient [id number] Matthew Aga 06/06/2018 06/07/2018 [facility] TM Phone Message [id number] 09/04/2018 09/06/2018 [facility] TM Phone Message [id number] 09/04/2018 09/06/2018 [facility] Outpatient [id number] Matthew gAa 01/02/2019 Active [facility] Outpatient [id number] Matthew Aga 01/02/2019 01/03/2019 [facility] Outpatient [id number] Shae Meza 01/17/2020 Active [facility] Observation [id number] Stephenie Zelaya 01/23/2020 01/24/2020 [facility] Outpatient [id number] Matthew Aga 02/12/2020 Active [facility] Ambulatory Pre-Reg [id number] Matthew Dow 02/12/2020 02/12/2020 [facility] Outpatient [id number] Matthew Aga 02/20/2020 Active [facility] Outpatient [id number] Matthew Aga 02/20/2020 02/21/2020 [facility] Outpatient [id number] Matthew Aga 02/28/2020 02/29/2020 [facility] Outpatient [id number] Matthew Aga 03/04/2020 [facility] [id number] Matthew Aga 03/04/2020 03/05/2020 [facility] Outpatient [id number] Matthew Aga 03/18/2020 03/19/2020 [facility] Outpatient [id number] Matthew Aga 03/25/2020 Active [facility] Outpatient [id number] Matthew Aga 03/25/2020 03/26/2020 [facility] Outpatient [id number] Matthew Aga 09/23/2020 [facility] Procedures Procedure Code Date Perfomer Comments Source Injection(s), of diagnostic or therapeut ic substance(s) (eg, anesthetic, antispasmodic, opioid, steroid, other solution), not including neurolytic substances, including needle or catheter placement, interlaminar epidural or subarachnoid, lumbar or sacral [id number] 03/22/2018 [facility] Injection(s), anesthetic agent and/or st eroid, transforaminal epidural, with imaging guidance (fluoroscopy or CT); lumbar or sacral, each additional level (List separately in addition to code for primary procedure) [id number] 02/22/2018 [facility] Injection(s), anesthetic agent and/or st eroid, transforaminal epidural, with imaging guidance (fluoroscopy or CT); lumbar or sacral, single level [id number] 02/22/2018 [facility] Cystoscopy [id number] 06/26/2014 [facility]le [facility] of prostate [id number] 02/13/2014 [facility] [id number] 06/20/2013 [facility] Complex [facility]flowmetry [id number] 12/28/2010 [facility] Procedure on back [id number] [facility] Repair of multiple tears of rotator cuff of shoulder [id number] [facility] Shoulder joint operations [id number] [facility] Assessment and Plan Assessment and Plan Date Source Extracted from:Title: Urology Consult Author: Mike Guzman MD Date: 01/24/20 Impression and Plan 1. 2 mm left distal ureteral calculus 2. DELMY 3. Constipation 4. Prostate cancer status post prostate ctomy 2014 Plan: -In regards to the patient's 2 mm left d istal ureteral calculus there is mild proximal hydronephrosis however this is a small stone. Discussed options with the patient including medical expulsive therapy versus operative intervention. He elects for medical expulsive therapy therefore we will start Flomax now and plan to discharge him home on this medication. He should be followed up in 1 to 2 weeks with a pre-clinic KUB to discuss management of his stone disease. -He would also benefit from an updated P SA after resolution of his stone disease -No further inpatient urologic intervent ion patient can follow-up with Dr. Yung in 1 to 2 weeks with a pre-clinic KUB I personally reviewed the patient's labs and imaging reports, looked at the images themselves, and contacted the consulting physician to discuss the above plan. 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 Umaña CONSULTING PHYSICINA: DR. Kothari REASON FOR CONSULTATION: Neck pain HISTORY OF PRESENT ILLNESS: This is a 64-year-old male who was having palpitations and he came to the hospital and was found to be in atrial fibrillation of new onset. He states that Tuesday morning he went to the bathroom and he passed out while in there and hit his head on the ground. Currently, he reports that he has some pain on the right side of his neck, more towards the shoulder and more so in hsi right ribs region. He denies severe pain. He denies arm pain, numbness or tingling. He denies balance difficulties or clumsiness in his hands. He reports that he underwent cardioversion successfully, and is feeling better. PAST MEDICAL HISTORY: He has a past medical history of osteoarthritis, hypertension, hyperlipidemia and gastroesophageal reflux disease. MEDICATIONS: Please see MAR SOCIAL HISTORY: Exsmoker. Occasional ETOH. PAST SURGICAL HISTORY: Include prostate surgery, L5-S1 surger, and rotator cuff. FAMILY HISTORY: Significant for hypertension. ALLERGIES: Amoxicillin. REVIEW OF SYSTEMS: A 14-point review of systems is unremarkable except those listed in the HISTORY OF PRESENT ILLNESS. PHYSICAL EXAMINATION: VITAL SIGNS: Blood pressure is 112/67, heart rate 72. Respiratory rate 13. GENERAL: Awake and alert, answers questions appropriately. NEUROLOGICAL: GCS 15. CN II - XII grossly intact. Reflexes 2+. Tone WNL. Sensation intact throughout. Negative Whitfield's sign. D B T WE FE FF HI IPS R 5 5 5 5 5 5 5 5 L 5 5 5 5 5 5 5 5 LABORATORY DATA: Hct: 48.0 % (08/16/15 07:53:12) Hgb: 16.3 g/dL (08/16/15 07:53:12) MCH: 30.2 pg (08/16/15 07:53:12) MCHC: 33.9 g/dL (08/16/15 07:53:12) MCV: 89.1 fL (08/16/15 07:53:12) MPV: 8.3 fL (08/16/15 08:14:59) Platelet: 259 K/CMM (08/16/15 07:53:12) RBC: 5.39 M/CMM (08/16/15 07:53:12) RDW: 13.2 % (08/16/15 07:53:12) WBC: 8.3 K/CMM (08/16/15 07:53:12) Basophils: 1.0 % (08/16/15 07:53:13) Basophils #: 0.1 K/CMM (08/16/15 07:53:13) Eosinophils: 5.0 % (08/16/15 07:53:13) Eosinophils #: 0.4 K/CMM (08/16/15 07:53:13) Lymphocytes: 30.7 % (08/16/15 07:53:13) Lymphocytes #: 2.6 K/CMM (08/16/15 07:53:13) Monocytes: 9.2 % (08/16/15 07:53:13) Monocytes #: 0.8 K/CMM (08/16/15 07:53:13) Segs: 54.1 % (08/16/15 07:53:13) Segs-Bands #: 4.5 K/CMM (08/16/15 07:53:13) CO2: 29 mEq/L (08/16/15 07:43:04) Chloride Lvl: 107 mEq/L (08/16/15 07:43:04) Sodium Lvl: 140 mEq/L (08/16/15 07:43:04) Glucose Lvl: 96 mg/dL (08/16/15 07:43:04) Calcium Lvl: 8.9 mg/dL (08/16/15 07:43:04) Potassium Lvl: 4.5 mEq/L (08/16/15 07:43:04) BUN: 22 mg/dL (08/16/15 07:43:04) AGAP: 8.5 mEq/L (08/16/15 07:43:04) Creatinine Lvl: 1.10 mg/dL (08/16/15 07:43:04) RADIOLOGY DATA: Cervical spine CT: There is a nondisplaced fracture at the anterior corner of the inferior endplate of C4. The fracture fragments appear somewhat corticated and there is no prevertebral soft tissue swelling. No additional cervical spine fractures are identified. There is grade 1 anterolisthesis at C3-C4. Vertebral body alignment is otherwise within normal limits. There is moderate cervical spondylosis, with greatest disc space narrowing at C6-C7. Arthrosis results in moderate or severe foraminal stenosis on the right side at its C3-C4 and on the right side at C6-C7. Grossly, there is no appreciably significant spinal canal stenosis. The soft tissues are grossly unremarkable. Ligament, spinal cord, and/or vascular abnormalities cannot be excluded on the basis of this examination. PENDING MRI: ASSESSMENT AND PLAN: 1. Anterior inferior osteophyte fracture at C4 secondary to fall Mr. Loomis, a pleasant 64 year old male, was seen today for his neck pain and the findings of fracture on cervical imaging. On his cervical CT scan we can visualize an anterior, inferior endplate/osteophyte fracture at C4. This does not appear to be causing any injury to nerves or spinal cord, nor does there appear to be any soft tissue swelling in this region. On physical exam the patient displays full strength, without evidence of radiculopathy or myelopathy. He reports only mild neck pain at this time. For Mr. Loomis we recommend conservative management for this fracture. We recommend a MRI cervical spine to evaluate for any potential soft tissue/nerve injury, however we feel this is unlikely. We also recommend a soft collar to be worn for comfort and support. We will have him follow up with us in 2 weeks in clinic with repeat cervical AP/Lat xrays for continued monitoring. From our standpoint, once the MRI is completed and reviewed by Dr. Kothari, if no significant findings, patient may be discharged home per primary/cardiology service. Thank you for this consultation. PLAN: 1. MRI cervical spine without contrast 2. Soft collar 3. F/u in clinic in 2 weeks with repeat AP/Lat cervical spine xrays (patient given our contact card) Nedra Macias APRN Extracted from:Title: Clinical Document Author: Luigi Pacheco MD Date: 08/16/15 Seen and Examined Full Note to be dictated 08/19/2015 [facility] Extracted from:Title: Clinical Document Author: Matthew Yung MD Date: 07/18/14 remains with pain, low mobility vss afeb uop ok drain scant--removed abd, min distension, scant bs incisions c/d/i sp robotic prostatectomy oob poss dc later today 07/18/2014 [facility] Plan of Care No Data Provided for This Section Social History Social History Date Source Social History TypeResponse Substance Abuse Use: None. Alcohol Current, Frequency: 1-2 times per year. Previous treatment: None. Smoking Status Former smoker; Exposure to Tobacco Smoke None; Cigarette Smoking Last 365 Days No; Reg Smoking Cessation Counseling No1 entered on: 06/06/18 1Patient states he quit smoking in 197901/04/2018 [facility] Social History TypeResponse Alcohol Current, Frequency: 1-2 times per year. Previous treatment: None. Substance Abuse Use: None. Smoking Status Former smoker; Exposure to Tobacco Smoke None; Cigarette Smoking Last 365 Days No; Reg Smoking Cessation Counseling No1 entered on: 03/25/20 1Patient states he quit smoking in 197901/04/2018 [facility] Social History TypeResponse Alcohol Current, Frequency: 1-2 times per year. Previous treatment: None. Substance Abuse Use: None. Smoking Status Former smoker; Exposure to Tobacco Smoke None; Cigarette Smoking Last 365 Days No; Reg Smoking Cessation Counseling No1 entered on: 03/04/20 1Patient states he quit smoking in 197901/04/2018 [facility] Marital History - Currently (Active) Never A Smoker (Active) Never Drank Alcohol (Active) Occupation: Retired (Active) 08/08/2013 [facility] [employer] Family History Value Date S ource Maternal history of Hypertension (V17.49 ); (Active) Maternal history of Ovarian Cancer (V16.41); (Active) Maternal history of Stroke Syndrome (V17.1); (Active) Paternal history of Hypertension (V17.49); (Active) Paternal history of Aortic Aneurysm (Active) Paternal history of Stroke Syndrome (V17.1); (Active) 08/08/2013 [facility] Advance Directives Order Name Results Value Date Source Advance Directives Advance Dir ectives No Advance Directives available. 08/08/2013 [facility] Functional Status No Data Provided for This Section
== END 2020-05-18 16:57 | disposition home or self-care (01) ==
LOC: FSED 16:50
DX: S61.012A Laceration without foreign body of left thumb without damage to nail, initial encounter (principal); W26.8XXA Contact with other sharp object(s), not elsewhere classified, initial encounter; Y92.008 Other place in unspecified non-institutional (private) residence as the place of occurrence of the external cause; I10 Essential (primary) hypertension; E78.5 Hyperlipidemia, unspecified
CPT/HCPCS: 99282

== ENCOUNTER 2021-06-02 14:48 | Emergency (ER) | payer MEDICARE, OTHER ==
[~2021-06-02] VITALS: Ht 190.5 cm; Wt 101.2 kg
[~2021-06-02 14:48] MED LIST: ATORVASTATIN CA20 MG PO; METOPROLOL SUCC50 MG PO
== END 2021-06-02 17:00 | disposition home or self-care (01) ==
LOC: FSED 15:19
DX: S20.212A Contusion of left front wall of thorax, initial encounter (principal); M25.522 Pain in left elbow; W01.0XXA Fall on same level from slipping, tripping and stumbling without subsequent striking against object, initial encounter; Y93.01 Activity, walking, marching and hiking; I48.91 Unspecified atrial fibrillation; I10 Essential (primary) hypertension; E78.5 Hyperlipidemia, unspecified; Z85.46 Personal history of malignant neoplasm of prostate
CPT/HCPCS: 71101; 99283

== ENCOUNTER → 2022-12-09 | Day surgery (SDC) | payer MEDICARE, BC ==
[~2022-12-09] MED LIST changes: +CELEBREX200 MG PO; +FENTANYL CITRATE/PF 100MCG/2 ML INJ ONE; +LACTATED RINGER'S 1,000 ML ONE; +METHOCARBAMOL750 MG PO; +MIDAZOLAM HCL 2 MG/2 ML VIAL ONE; +NEURONTIN400 MG PO; +NUEDEXTA 20-101 EACH PO; +OR PHACO EYE KIT ONE; +PREOP PHACO EYE KIT ONE; +TRAZODONE HCL100 MG PO; +VESICARE5 MG PO; +VITAMIN D3 COM1 EACH PO; +WARFARIN SODIUM3 MG PO; +[UNRECOGNIZED DRUG - OTHER] PO
[2022-12-09 11:05] LABS: INR 1.26; PROTHROMBIN TIME 16.3 seconds (11.9-14.5)
[2022-12-09 11:06] LABS: PARTIAL THROMBOPLASTIN TIME 33.6 seconds (23.8-35.5)
[2022-12-09 12:36] VITALS: BP 175/71; PULSE 47; RESP 16; TEMP 97.6; O2SAT 96
== END | disposition home or self-care (01) ==
LOC: OR 09:51
PROVIDERS: ATTEND Ophthalmology
DX: H25.11 Age-related nuclear cataract, right eye (principal); G47.33 Obstructive sleep apnea (adult) (pediatric); G12.21 Amyotrophic lateral sclerosis; I10 Essential (primary) hypertension; I48.91 Unspecified atrial fibrillation; E78.5 Hyperlipidemia, unspecified; I49.9 Cardiac arrhythmia, unspecified; Z79.899 Other long term (current) drug therapy; Z79.01 Long term (current) use of anticoagulants
CPT/HCPCS: 36415; 66984; 85610; 85730; J2250; J3010; J7121; V2632